=== PATIENT | male | born 1950 | race Caucasian/White ===

== ENCOUNTER 2020-05-16 07:50 | Outpatient (REF) | payer MEDICARE, SELFPAY ==
[2020-05-16 08:28] LABS: MANUAL DIFF FLAG NO
[2020-05-16 08:34] LABS: Basophils Percent Auto 0.6 % (0-2); Eosinophils Absolute Auto 0.3 X10*3/uL (0.0-0.4); Eosinophils Percent Auto 5.2 % (0-4); Hematocrit 45.9 % (42-52); Hemoglobin 14.7 g/dl (14.0-18.0); Imm Gran Abs Auto 0.01 X10*3/uL (0.00-0.03); Imm Gran Pct Auto 0.2 % (0.0-0.4); Lymphocytes Absolute Auto 1.6 X10*3/uL (1.2-4.9); Lymphocytes Percent Auto 29.8 % (20-40); Mean Corpuscular Hemoglobin 27.7 pg (27.0-33.0); Mean Corpuscular Volume 86.6 fL (80-98); Mean Platelet Volume 12.2 fL (9.4-12.4); Monocytes Absolute Auto 0.5 X10*3/uL (0.1-1.2); Monocytes Percent Auto 9.8 % (2-11); Neutrophils Percent Auto 54.4 % (45-73); Platelet Count 150 X10*3/uL (160-400); Red Cell Distribution Width 12.9 % (11.0-16.0); White Blood Count 5.4 X10*3/uL (4.8-10.8)
[2020-05-16 08:50] LABS: Alanine Aminotransferase 27 U/L (0-40); Albumin Level 4.1 g/dL (3.5-5.0); Alkaline Phosphatase 41 U/L (39-117); Anion Gap 12 (12-20); Aspartate Amino Transferase 26 U/L (5-37); Bilirubin Total 0.9 mg/dL (0.0-1.0); Blood Urea Nitrogen 16 mg/dL (9-16); Calcium 8.9 mg/dL (8.4-10.2); Carbon Dioxide 27 mmol/L (22-29); Chloride 105 mmol/L (96-108); Cholesterol 125 mg/dL; Estimated Glomerular Filt Rate > 60; Glucose Fasting 90 mg/dL (60-99); HDL Cholesterol 32 mg/dL; LDL Cholesterol Calculated 62 mg/dl; Potassium 4.2 mmol/l (3.3-5.1); Sodium 140 mmol/L (135-145); Triglycerides 158 mg/dL
[2020-05-16 08:54] LABS: Glucose Urine UA NEG (NEG); Leukocyte Esterase Urine NEG (NEG); Nitrite Urine NEG (NEG); Specific Gravity - Urine 1.025 (1.005-1.025); Urine Blood NEG (NEG); Urine Ketones NEG (NEG); Urine Protein NEG (NEG-TRACE)
[2020-05-16 08:55] LABS: Appearance Urine CLEAR; Color Urine YELLOW
[2020-05-16 09:01] LABS: RBC Urine 0-2 /HPF (0); WBC Urine 0-2 /HPF (0-4)
[2020-05-16 09:12] LABS: TSH reflex Free T4 4.79 mIU/mL (0.32-4.0); Vitamin D 25-OH Total 28.6 ng/mL (>30)
[2020-05-16 09:47] LABS: Free T4 (Free Thyroxine) 0.87 ng/dL (0.71-1.85)
== END 2020-05-16 07:51 | disposition home or self-care (01) ==
LOC: HO.LAB 07:50
PROVIDERS: Visit Provider Internal Medicine
DX: E78.5 Hyperlipidemia, unspecified (principal); I10 Essential (primary) hypertension; L50.9 Urticaria, unspecified; N28.1 Cyst of kidney, acquired; E55.9 Vitamin D deficiency, unspecified; M81.0 Age-related osteoporosis without current pathological fracture; E66.3 Overweight
CPT/HCPCS: 36415; 80053; 80061; 81001; 82306; 84439; 84443; 85025

== ENCOUNTER 2020-08-17 08:06 | Outpatient (REF) | payer MEDICARE, SELFPAY ==
[2020-08-17 08:41] LABS: MANUAL DIFF FLAG NO
[2020-08-17 08:50] LABS: Basophils Absolute Auto 0.1 X10*3/uL (0.0-0.2); Basophils Percent Auto 0.8 % (0-2); Eosinophils Absolute Auto 0.2 X10*3/uL (0.0-0.4); Eosinophils Percent Auto 3.5 % (0-4); Hematocrit 45.9 % (42-52); Hemoglobin 14.9 g/dl (14.0-18.0); Imm Gran Abs Auto 0.01 X10*3/uL (0.00-0.03); Imm Gran Pct Auto 0.2 % (0.0-0.4); Lymphocytes Absolute Auto 1.6 X10*3/uL (1.2-4.9); Lymphocytes Percent Auto 25.7 % (20-40); Mean Corpuscular HGB Conc 32.5 g/dl (31.0-36.0); Mean Corpuscular Hemoglobin 28.1 pg (27.0-33.0); Mean Corpuscular Volume 86.4 fL (80-98); Mean Platelet Volume 11.9 fL (9.4-12.4); Monocytes Absolute Auto 0.6 X10*3/uL (0.1-1.2); Monocytes Percent Auto 9.1 % (2-11); Neutrophils Absolute Auto 3.8 X10*3/uL (2.0-8.3); Neutrophils Percent Auto 60.7 % (45-73); Platelet Count 152 X10*3/uL (160-400); Red Blood Count 5.31 X10*6/uL (4.60-5.80); Red Cell Distribution Width 13.1 % (11.0-16.0); White Blood Count 6.2 X10*3/uL (4.8-10.8)
[2020-08-17 08:56] LABS: Glucose Urine UA NEG (NEG); Leukocyte Esterase Urine TRACE (NEG); Nitrite Urine NEG (NEG); PH 5.5 (5.0-8.0); Specific Gravity - Urine >= 1.030 (1.005-1.025); UACC Culture Trigger YES; Urine Blood TRACE (NEG); Urine Ketones NEG (NEG); Urine Protein NEG (NEG-TRACE)
[2020-08-17 09:06] LABS: Appearance Urine CLEAR; Color Urine YELLOW
[2020-08-17 09:07] LABS: RBC Urine 0-2 /HPF (0)
[2020-08-17 09:08] LABS: Mucus Urine 1+ /LPF; Squamous Epithelial Cell Urine TRACE /LPF
[2020-08-17 09:23] LABS: Alanine Aminotransferase 26 U/L (0-40); Albumin Level 4.2 g/dL (3.5-5.0); Alkaline Phosphatase 44 U/L (39-117); Anion Gap 12 (12-20); Aspartate Amino Transferase 23 U/L (5-37); Bilirubin Total 0.7 mg/dL (0.0-1.0); Blood Urea Nitrogen 20 mg/dL (9-16); Calcium 9.1 mg/dL (8.4-10.2); Carbon Dioxide 25 mmol/L (22-29); Chloride 108 mmol/L (96-108); Cholesterol 133 mg/dL; Estimated Glomerular Filt Rate > 60; Glucose Fasting 90 mg/dL (60-99); HDL Cholesterol 37 mg/dL; LDL Cholesterol Calculated 68 mg/dl; Potassium 4.4 mmol/L (3.3-5.1); Sodium 141 mmol/L (135-145); Total Protein 7.1 g/dL (6.5-8.0); Triglycerides 143 mg/dL
[2020-08-17 09:36] LABS: TSH reflex Free T4 4.84 uIU/mL (0.32-4.0)
[2020-08-17 10:27] LABS: Free T4 (Free Thyroxine) 0.92 ng/dL (0.71-1.85)
== END 2020-08-17 08:07 | disposition home or self-care (01) ==
LOC: HO.LAB 08:06
PROVIDERS: PCP Internal Medicine; Visit Provider Internal Medicine
DX: I10 Essential (primary) hypertension (principal); E78.00 Pure hypercholesterolemia, unspecified; E66.3 Overweight; E55.9 Vitamin D deficiency, unspecified
CPT/HCPCS: 36415; 80053; 80061; 81001; 81003; 82306; 84439; 84443; 85025; 87086

== ENCOUNTER 2020-11-21 06:19 | Outpatient (REF) | payer MEDICARE, SELFPAY ==
[2020-11-21 06:52] LABS: MANUAL DIFF FLAG NO
[2020-11-21 07:10] LABS: Basophils Percent Auto 0.8 % (0-2); Eosinophils Absolute Auto 0.2 X10*3/uL (0.0-0.4); Eosinophils Percent Auto 3.5 % (0-4); Hemoglobin 14.9 g/dl (14.0-18.0); Imm Gran Abs Auto 0.01 X10*3/uL (0.00-0.03); Imm Gran Pct Auto 0.2 % (0.0-0.4); Lymphocytes Absolute Auto 1.6 X10*3/uL (1.2-4.9); Lymphocytes Percent Auto 31.5 % (20-40); Mean Corpuscular HGB Conc 32.4 g/dl (31.0-36.0); Mean Corpuscular Hemoglobin 28.1 pg (27.0-33.0); Mean Corpuscular Volume 86.8 fL (80-98); Monocytes Absolute Auto 0.5 X10*3/uL (0.1-1.2); Monocytes Percent Auto 9.4 % (2-11); Neutrophils Absolute Auto 2.9 X10*3/uL (2.0-8.3); Neutrophils Percent Auto 54.6 % (45-73); Platelet Count 160 X10*3/uL (160-400); Red Cell Distribution Width 12.8 % (11.0-16.0); White Blood Count 5.2 X10*3/uL (4.8-10.8)
[2020-11-21 07:11] LABS: Glucose Urine UA NEG (NEG); Leukocyte Esterase Urine NEG (NEG); Nitrite Urine NEG (NEG); Urine Blood NEG (NEG); Urine Ketones NEG (NEG); Urine Protein NEG (NEG-TRACE)
[2020-11-21 07:14] LABS: Appearance Urine CLEAR; Color Urine YELLOW
[2020-11-21 07:43] LABS: Prostate Specific Antigen 1.86 ng/mL (<0.05-4.0); TSH reflex Free T4 4.82 uIU/mL (0.32-4.0); Vitamin D 25-OH Total 31.8 ng/mL (>30)
[2020-11-21 07:48] LABS: Alanine Aminotransferase 31 U/L (0-40); Albumin Level 4.2 g/dL (3.5-5.0); Alkaline Phosphatase 44 U/L (39-117); Anion Gap 11 (12-20); Aspartate Amino Transferase 30 U/L (5-37); Bilirubin Total 0.7 mg/dL (0.0-1.0); Blood Urea Nitrogen 16 mg/dL (9-16); Calcium 9.5 mg/dL (8.4-10.2); Carbon Dioxide 28 mmol/L (22-29); Chloride 105 mmol/L (96-108); Cholesterol 124 mg/dL; Estimated Glomerular Filt Rate > 60; Glucose Fasting 89 mg/dL (60-99); HDL Cholesterol 38 mg/dL; LDL Cholesterol Calculated 65 mg/dl; Potassium 4.7 mmol/L (3.3-5.1); Sodium 139 mmol/L (135-145); Total Protein 7.2 g/dL (6.5-8.0); Triglycerides 107 mg/dL
[2020-11-21 08:40] LABS: Free T4 (Free Thyroxine) 0.88 ng/dL (0.71-1.85)
== END 2020-11-21 06:20 | disposition home or self-care (01) ==
LOC: HO.LAB 06:19
PROVIDERS: PCP Internal Medicine; Visit Provider Internal Medicine
DX: Z12.5 Encounter for screening for malignant neoplasm of prostate (principal); E78.00 Pure hypercholesterolemia, unspecified; I10 Essential (primary) hypertension; N28.1 Cyst of kidney, acquired; E66.3 Overweight; R31.29 Other microscopic hematuria; E55.9 Vitamin D deficiency, unspecified; M81.0 Age-related osteoporosis without current pathological fracture
CPT/HCPCS: 36415; 80053; 80061; 81003; 82306; 84153; 84439; 84443; 85025

== ENCOUNTER 2021-01-03 12:10 | Outpatient (REF) | payer MEDICARE, SELFPAY ==
--- NOTE | ~2021-01-03 | MM_ITS ---
EXAMINATION: BONE DENSITOMETRY CLINICAL INDICATION: Age-related osteoporosis without current pathological fracture. COMPARISON: Previous BD dated 11/05/2018 and baseline BD dated 03/26/2012. TECHNIQUE: Using a [employer] DXA System (software version: 13.1) manufactured by [employer], dual-energy x-ray absorptiometry was performed of the lumbar spine and left hip. The images are of good technical quality. Summary results are attached. FINDINGS: AP SPINE L1-L2 (excluding L3 and L4): The data of L1-L4 has been changed to exclude the L3 and L4 vertebral bodies, because degenerative changes at these levels may cause overestimation of lumbar spine density. Current: BMD 1.305 g/cm2, Z-score 0.6, T-score 0.9, normal, 3.7% increase from previous, 3.2% increase from baseline (<5% change is not significant). Prior: BMD 1.258 g/cm2. Baseline: BMD 1.264 g/cm2. LEFT FEMUR, NECK: Current: BMD 0.779 g/cm2, Z-score -1.6, T-score -2.2, osteopenia. Prior: BMD 0.790 g/cm2. Baseline: BMD 0.733 g/cm2. LEFT FEMUR, TOTAL: Current: BMD 0.820 g/cm2, Z-score -1.7, T-score -2.0, osteopenia, 2.0% decrease from previous, 1.9% increase from baseline (<5% change is not significant). Prior: BMD 0.837 g/cm2. Baseline: BMD 0.805 g/cm2. IDENTIFIED RISK FACTORS: History of fracture (adult). HISTORY OF FRACTURE: Femur/hip, age 39. MEDICATIONS: Calcium supplements or multivitamin, vitamin D. MM/XR DEXA axial skeleton IMPRESSION: 1. DIAGNOSIS: Osteopenia based on the lowest T-score value of -2.2 in the femoral neck applying World Health Organization criteria. 2. 10-YEAR FRACTURE RISK PREDICTION, FRAX: Major osteoporotic fracture (clinical spine, forearm, hip or shoulder) 13.1%. Hip fracture 3.3%. 3. Treatment Recommendations: NOF guidelines recommend consideration for treatment in postmenopausal women and men age 50 and older presenting with the following: -A hip or vertebral (clinical or morphometric) fracture. -T-score less than or equal to -2.5 at the femoral neck or spine after appropriate evaluation to exclude secondary causes. -Low bone mass at the hip or spine and a 10-year fracture probability by FRAX of greater than or equal to 3% for hip fracture or greater than or equal to 20% for major osteoporotic fracture based on the [place] adapted WHO algorithm. 4. Other Recommendations: All treatment decisions require clinical judgment and consideration of individual patient factors, including patient preferences, comorbidities, previous drug use, risk factors not captured in the FRAX model (e.g. frailty, falls, vitamin D deficiency, increased bone turnover, interval significant decline in bone density) and possible under or overestimation of fracture risk by FRAX. Additional medical evaluation for secondary cause of low bone mineral density may be appropriate. FUTURE SCAN RECOMMENDATION: People with diagnosed cases of osteoporosis or at high risk for fracture should have regular bone mineral density tests. For patients eligible for Medicare, routine testing is allowed once every 2 years. The testing frequency can be increased to one year for patients who have rapidly progressing disease, those who are receiving or discontinuing medical therapy to restore bone mass, or have additional risk factors.
== END 2021-01-03 12:11 | disposition home or self-care (01) ==
LOC: HO.MAMMO 12:10
PROVIDERS: Visit Provider Internal Medicine
DX: Z13.820 Encounter for screening for osteoporosis (principal); M81.0 Age-related osteoporosis without current pathological fracture; Z87.81 Personal history of (healed) traumatic fracture; Z79.899 Other long term (current) drug therapy
CPT/HCPCS: 77080

== ENCOUNTER 2021-03-01 06:06 | Outpatient (REF) | payer MEDICARE, SELFPAY ==
[2021-03-01 06:53] LABS: MANUAL DIFF FLAG NO
[2021-03-01 06:56] LABS: Basophils Percent Auto 0.6 % (0-2); Eosinophils Absolute Auto 0.3 X10*3/uL (0.0-0.4); Hematocrit 44.1 % (42-52); Hemoglobin 14.4 g/dl (14.0-18.0); Imm Gran Abs Auto 0.02 X10*3/uL (0.00-0.03); Imm Gran Pct Auto 0.3 % (0.0-0.4); Lymphocytes Absolute Auto 2.1 X10*3/uL (1.2-4.9); Lymphocytes Percent Auto 32.3 % (20-40); Mean Corpuscular HGB Conc 32.7 g/dl (31.0-36.0); Mean Corpuscular Volume 85.8 fL (80-98); Mean Platelet Volume 12.3 fL (9.4-12.4); Monocytes Absolute Auto 0.7 X10*3/uL (0.1-1.2); Monocytes Percent Auto 10.5 % (2-11); Neutrophils Absolute Auto 3.4 X10*3/uL (2.0-8.3); Neutrophils Percent Auto 51.3 % (45-73); Platelet Count 155 X10*3/uL (160-400); Red Blood Count 5.14 X10*6/uL (4.60-5.80); Red Cell Distribution Width 13.2 % (11.0-16.0); White Blood Count 6.6 X10*3/uL (4.8-10.8)
[2021-03-01 07:15] LABS: Alanine Aminotransferase 28 U/L (0-40); Albumin Level 4.2 g/dL (3.5-5.0); Alkaline Phosphatase 40 U/L (39-117); Anion Gap 11 (12-20); Aspartate Amino Transferase 32 U/L (5-37); Bilirubin Total 0.9 mg/dL (0.0-1.0); Blood Urea Nitrogen 19 mg/dL (9-16); Calcium 9.3 mg/dL (8.4-10.2); Carbon Dioxide 26 mmol/L (22-29); Chloride 108 mmol/L (96-108); Cholesterol 123 mg/dL; Estimated Glomerular Filt Rate > 60; Glucose Fasting 89 mg/dL (60-99); HDL Cholesterol 38 mg/dL; LDL Cholesterol Calculated 65 mg/dl; Potassium 4.5 mmol/L (3.3-5.1); Sodium 140 mmol/L (135-145); Total Protein 6.9 g/dL (6.5-8.0); Triglycerides 101 mg/dL
[2021-03-01 07:37] LABS: Free T4 (Free Thyroxine) 0.83 ng/dL (0.71-1.85); Thyroid Stimulating Hormone 4.37 uIU/mL (0.32-4.0); Vitamin D 25-OH Total 30.8 ng/mL (>30)
[2021-03-01 08:17] LABS: Appearance Urine CLEAR; Color Urine YELLOW; Glucose Urine UA NEG (NEG); Leukocyte Esterase Urine NEG (NEG); Nitrite Urine NEG (NEG); PH 6.5 (5.0-8.0); Urine Blood NEG (NEG); Urine Ketones NEG (NEG); Urine Protein NEG (NEG-TRACE)
== END 2021-03-01 06:07 | disposition home or self-care (01) ==
LOC: HO.LAB 06:06
PROVIDERS: PCP Internal Medicine; Visit Provider Internal Medicine
DX: E55.9 Vitamin D deficiency, unspecified (principal); I10 Essential (primary) hypertension; E03.9 Hypothyroidism, unspecified; E78.00 Pure hypercholesterolemia, unspecified
CPT/HCPCS: 36415; 80053; 80061; 81003; 82306; 84439; 84443; 85025

== ENCOUNTER 2021-05-30 06:01 | Outpatient (REF) | payer MEDICARE, SELFPAY ==
[2021-05-30 06:28] LABS: MANUAL DIFF FLAG NO
[2021-05-30 07:16] LABS: Appearance Urine CLEAR; Color Urine YELLOW; Glucose Urine UA NEG (NEG); Leukocyte Esterase Urine NEG (NEG); Nitrite Urine NEG (NEG); Specific Gravity - Urine 1.025 (1.005-1.025); Urine Blood NEG (NEG); Urine Ketones NEG (NEG); Urine Protein NEG (NEG-TRACE)
[2021-05-30 07:17] LABS: Basophils Percent Auto 0.6 % (0-2); Eosinophils Absolute Auto 0.2 X10*3/uL (0.0-0.4); Eosinophils Percent Auto 3.6 % (0-4); Hematocrit 44.7 % (42.0-52.0); Hemoglobin 14.3 g/dl (14.0-18.0); Imm Gran Abs Auto 0.01 X10*3/uL (0.00-0.03); Imm Gran Pct Auto 0.2 % (0.0-0.4); Lymphocytes Absolute Auto 1.6 X10*3/uL (1.2-4.9); Lymphocytes Percent Auto 30.5 % (20-40); Mean Corpuscular Hemoglobin 27.9 pg (27.0-33.0); Mean Corpuscular Volume 87.3 fL (80.0-98.0); Monocytes Absolute Auto 0.5 X10*3/uL (0.1-1.2); Monocytes Percent Auto 8.5 % (2-11); Neutrophils Percent Auto 56.6 % (45-73); Platelet Count 163 X10*3/uL (160-400); Red Blood Count 5.12 X10*6/uL (4.60-5.80); Red Cell Distribution Width 13.1 % (11.0-16.0); White Blood Count 5.3 X10*3/uL (4.8-10.8)
[2021-05-30 07:48] LABS: Alanine Aminotransferase 38 U/L (0-40); Albumin Level 4.2 g/dL (3.5-5.0); Alkaline Phosphatase 39 U/L (39-117); Anion Gap 12 (12-20); Aspartate Amino Transferase 37 U/L (5-37); Bilirubin Total 1.3 mg/dL (0.0-1.0); Blood Urea Nitrogen 17 mg/dL (9-16); Calcium 9.5 mg/dL (8.4-10.2); Carbon Dioxide 28 mmol/L (22-29); Chloride 105 mmol/L (96-108); Cholesterol 122 mg/dL; Estimated Glomerular Filt Rate > 60; Glucose Fasting 88 mg/dL (60-99); HDL Cholesterol 38 mg/dL; LDL Cholesterol Calculated 56 mg/dl; Potassium 4.5 mmol/L (3.3-5.1); Sodium 140 mmol/L (135-145); Triglycerides 140 mg/dL
[2021-05-30 08:12] LABS: Thyroid Stimulating Hormone 4.31 uIU/mL (0.32-4.0)
== END 2021-05-30 06:02 | disposition home or self-care (01) ==
LOC: HO.LAB 06:01
PROVIDERS: PCP Internal Medicine; Visit Provider Internal Medicine
DX: E78.00 Pure hypercholesterolemia, unspecified (principal); I10 Essential (primary) hypertension; R79.89 Other specified abnormal findings of blood chemistry
CPT/HCPCS: 36415; 80053; 80061; 81003; 84439; 84443; 85025

== ENCOUNTER 2021-08-31 06:43 | Outpatient (REF) | payer MEDICARE, SELFPAY ==
[2021-08-31 07:09] LABS: MANUAL DIFF FLAG NO
[2021-08-31 07:33] LABS: Appearance Urine CLEAR; Color Urine YELLOW; Glucose Urine UA NEG (NEG); Leukocyte Esterase Urine NEG (NEG); Nitrite Urine NEG (NEG); Specific Gravity - Urine 1.025 (1.005-1.025); Urine Blood NEG (NEG); Urine Ketones NEG (NEG); Urine Protein NEG (NEG-TRACE)
[2021-08-31 07:38] LABS: Basophils Percent Auto 0.6 % (0-2); Eosinophils Absolute Auto 0.1 X10*3/uL (0.0-0.4); Eosinophils Percent Auto 2.4 % (0-4); Hematocrit 46.6 % (42.0-52.0); Hemoglobin 14.7 g/dl (14.0-18.0); Imm Gran Abs Auto 0.01 X10*3/uL (0.00-0.03); Imm Gran Pct Auto 0.2 % (0.0-0.4); Lymphocytes Absolute Auto 1.5 X10*3/uL (1.2-4.9); Lymphocytes Percent Auto 28.8 % (20-40); Mean Corpuscular HGB Conc 31.5 g/dl (31.0-36.0); Mean Corpuscular Hemoglobin 27.4 pg (27.0-33.0); Mean Corpuscular Volume 86.9 fL (80.0-98.0); Monocytes Absolute Auto 0.5 X10*3/uL (0.1-1.2); Monocytes Percent Auto 9.7 % (2-11); Neutrophils Absolute Auto 3.1 x10*3/uL (2.0-8.3); Neutrophils Percent Auto 58.3 % (45-73); Platelet Count 156 X10*3/uL (160-400); Red Blood Count 5.36 X10*6/uL (4.60-5.80); Red Cell Distribution Width 13.2 % (11.0-16.0); White Blood Count 5.3 X10*3/uL (4.8-10.8)
[2021-08-31 07:57] LABS: Alanine Aminotransferase 29 U/L (0-40); Albumin Level 4.1 g/dL (3.5-5.0); Alkaline Phosphatase 42 U/L (39-117); Anion Gap 10 (12-20); Aspartate Amino Transferase 28 U/L (5-37); Bilirubin Total 1.2 mg/dL (0.0-1.0); Blood Urea Nitrogen 18 mg/dL (9-16); Calcium 9.6 mg/dL (8.4-10.2); Carbon Dioxide 29 mmol/L (22-29); Chloride 105 mmol/L (96-108); Cholesterol 133 mg/dL; Estimated Glomerular Filt Rate > 60; Glucose Fasting 86 mg/dL (60-99); HDL Cholesterol 39 mg/dL; LDL Cholesterol Calculated 68 mg/dl; Potassium 4.5 mmol/L (3.3-5.1); Sodium 139 mmol/L (135-145); Triglycerides 134 mg/dL
[2021-08-31 08:29] LABS: Vitamin D 25-OH Total 33.2 ng/mL (>30)
== END 2021-08-31 06:44 | disposition home or self-care (01) ==
LOC: HO.LAB 06:43
PROVIDERS: PCP Internal Medicine; Visit Provider Internal Medicine
DX: E78.00 Pure hypercholesterolemia, unspecified (principal); I10 Essential (primary) hypertension; E03.9 Hypothyroidism, unspecified; E55.9 Vitamin D deficiency, unspecified
CPT/HCPCS: 36415; 80053; 80061; 81003; 82306; 84439; 84443; 85025

== ENCOUNTER 2021-10-01 10:11 | Outpatient (REF) | payer MEDICARE, SELFPAY ==
--- NOTE | ~2021-10-01 | US_ITS ---
EXAMINATION: US RETROPERITONEAL LIMITED (RENAL ONLY) CLINICAL INFORMATION: Cyst of kidney, acquired. COMPARISON: US retroperitoneal limited (renal only) 08/04/2019. CT abdomen and pelvis without and with contrast 12/09/2014. TECHNIQUE: Real-time imaging of the kidneys. FINDINGS: RIGHT KIDNEY: 12.6 x 6.5 x 5.8 cm (SAG x AP x TRV). The kidney is normal in size, contour, and echogenicity. Renal cortical thickness is normal. No renal calculi or hydronephrosis. Benign-appearing peripelvic and renal cysts measuring up to 1.5 cm no routine follow up recommended. LEFT KIDNEY: 11.3 x 6.0 x 4.7 cm (SAG x AP x TRV). The kidney is normal in size, contour, and echogenicity. Renal cortical thickness is normal. No renal calculi. Left renal pelviectasis without radha hydronephrosis. Benign appearing peripelvic and renal cysts measuring up to 2.2 cm, no routine follow up imaging recommended. US/US renal BI IMPRESSION: Left renal pelviectasis without radha hydronephrosis. Benign-appearing bilateral renal and peripelvic renal cysts, no imaging follow-up recommended.
== END 2021-10-01 10:12 | disposition home or self-care (01) ==
LOC: HO.US 10:11
PROVIDERS: PCP Internal Medicine; Visit Provider Internal Medicine
DX: N28.1 Cyst of kidney, acquired (principal)
CPT/HCPCS: 76775

== ENCOUNTER 2021-10-08 11:53 | Outpatient (REF) | payer MEDICARE, SELFPAY ==
--- NOTE | ~2021-10-08 | XR_ITS ---
EXAMINATION: XR RIBS, RIGHT CLINICAL INFORMATION: Pleurodynia COMPARISON: Chest x-ray 01/14/2007 TECHNIQUE: 3 views of the right ribs were obtained. FINDINGS: Cardiac silhouette is normal in size. The lungs are well aerated. Minimal linear opacities of the right lung base are most suggestive of atelectasis. There is no lobar consolidation. No pleural effusion or pneumothorax. No right-sided rib fracture. XR/XR ribs RT min 3V w CXR1V IMPRESSION: No right-sided rib fracture.
== END 2021-10-08 11:54 | disposition home or self-care (01) ==
LOC: HO.XRAY 11:53
PROVIDERS: PCP Internal Medicine; Visit Provider Hospitalist
DX: R07.81 Pleurodynia (principal)
CPT/HCPCS: 71101

== ENCOUNTER 2021-12-04 07:21 | Outpatient (REF) | payer MEDICARE, SELFPAY ==
[2021-12-04 07:37] LABS: MANUAL DIFF FLAG NO
[2021-12-04 08:11] LABS: Basophils Percent Auto 0.6 % (0-2); Eosinophils Absolute Auto 0.2 X10*3/uL (0.0-0.4); Eosinophils Percent Auto 2.9 % (0-4); Hematocrit 48.3 % (42.0-52.0); Hemoglobin 15.1 g/dl (14.0-18.0); Imm Gran Abs Auto 0.01 X10*3/uL (0.00-0.03); Imm Gran Pct Auto 0.2 % (0.0-0.4); Lymphocytes Absolute Auto 1.9 X10*3/uL (1.2-4.9); Lymphocytes Percent Auto 36.5 % (20-40); Mean Corpuscular HGB Conc 31.3 g/dl (31.0-36.0); Mean Corpuscular Hemoglobin 27.2 pg (27.0-33.0); Mean Corpuscular Volume 86.9 fL (80.0-98.0); Mean Platelet Volume 11.5 fL (9.4-12.4); Monocytes Absolute Auto 0.6 X10*3/uL (0.1-1.2); Monocytes Percent Auto 10.8 % (2-11); Neutrophils Absolute Auto 2.5 x10*3/uL (2.0-8.3); Platelet Count 159 X10*3/uL (160-400); Red Blood Count 5.56 X10*6/uL (4.60-5.80); Red Cell Distribution Width 13.1 % (11.0-16.0); White Blood Count 5.1 X10*3/uL (4.8-10.8)
[2021-12-04 08:37] LABS: Alanine Aminotransferase 34 U/L (0-40); Albumin Level 4.4 g/dL (3.5-5.0); Alkaline Phosphatase 51 U/L (39-117); Anion Gap 12 (12-20); Aspartate Amino Transferase 33 U/L (5-37); Bilirubin Total 0.8 mg/dL (0.0-1.0); Blood Urea Nitrogen 22 mg/dL (9-16); Calcium 9.4 mg/dL (8.4-10.2); Carbon Dioxide 26 mmol/L (22-29); Chloride 108 mmol/L (96-108); Cholesterol 125 mg/dL; Estimated Glomerular Filt Rate > 60; Glucose Fasting 92 mg/dL (60-99); HDL Cholesterol 38 mg/dL; LDL Cholesterol Calculated 72 mg/dl; Potassium 4.5 mmol/L (3.3-5.1); Sodium 141 mmol/L (135-145); Total Protein 7.3 g/dL (6.5-8.0); Triglycerides 77 mg/dL
[2021-12-04 09:01] LABS: Free T4 (Free Thyroxine) 0.91 ng/dL (0.71-1.85); Prostate Specific Antigen 2.74 ng/mL (<0.05-4.0); Thyroid Stimulating Hormone 3.62 uIU/mL (0.32-4.0); Vitamin D 25-OH Total 33.6 ng/mL (>30)
[2021-12-04 09:13] LABS: Appearance Urine CLEAR; Color Urine YELLOW; Glucose Urine UA NEG (NEG); Leukocyte Esterase Urine NEG (NEG); Nitrite Urine NEG (NEG); Specific Gravity - Urine >= 1.030 (1.005-1.025); Urine Blood NEG (NEG); Urine Ketones NEG (NEG); Urine Protein NEG (NEG-TRACE)
== END 2021-12-04 07:22 | disposition home or self-care (01) ==
LOC: HO.LAB 07:21
PROVIDERS: PCP Internal Medicine; Visit Provider Internal Medicine
DX: N40.0 Benign prostatic hyperplasia without lower urinary tract symptoms (principal); E55.9 Vitamin D deficiency, unspecified; I10 Essential (primary) hypertension; R79.89 Other specified abnormal findings of blood chemistry; E78.00 Pure hypercholesterolemia, unspecified; Z12.5 Encounter for screening for malignant neoplasm of prostate
CPT/HCPCS: 36415; 80053; 80061; 81003; 82306; 84153; 84439; 84443; 85025

== ENCOUNTER 2022-03-28 13:45 | Inpatient (IN) | payer MEDICARE, SELFPAY ==
--- NOTE | ~2022-03-28 | CT_ITS ---
EXAMINATION: CT ANGIOGRAM OF THE CHEST WITH AND WITHOUT CONTRAST (CT PULMONARY ANGIOGRAM FOR PE) CLINICAL INFORMATION: Reason for Exam sob with covid COMPARISON: Chest x-ray 03/28/2022 TECHNIQUE: Prior to contrast administration, noncontrast localization images were obtained. Subsequently, multidetector volumetric imaging was performed from the thoracic inlet to below the diaphragms following the administration of 65 mL Omnipaque 350 intravenous contrast. No contrast reaction reported Sagittal, coronal, and MIP oblique sagittal reformatted images were obtained on the CT workstation, uploaded to PACS, and reviewed. This CT examination was performed using dose optimization techniques as appropriate, variously including the following: *Automated exposure control *Adjustment of mA and/or kV according to patient size (this includes techniques or standardized protocols for targeted exams where dose is matched to indication/reason for exam; i.e. extremities or head) *Use of iterative reconstruction technique Total exam dose-length product 387 mGy-cm FINDINGS: QUALITY OF STUDY/CONTRAST BOLUS: Satisfactory. PULMONARY ARTERIES: No central or segmental pulmonary emboli. THORACIC AORTA: No aneurysm or dissection. Mild scattered calcification. LUNG: There are relatively curvilinear regions of groundglass opacity in the inferior lingula and left lower lobe, suggesting atelectasis. Mild dependent atelectasis bilaterally. No additional dense consolidation bilaterally. PLEURA: No pleural effusion or pneumothorax. MEDIASTINUM: The visualized thyroid gland is unremarkable. There are subcentimeter mediastinal lymph nodes within the range of normal variation. Cardiac size is within normal limits; no pericardial effusion. CHEST WALL/AXILLA: No axillary or internal mammary lymphadenopathy. OSSEOUS STRUCTURES: Degenerative changes are noted in the spine. UPPER ABDOMEN: Unremarkable. No reflux of contrast into the hepatic veins to suggest elevated right heart pressures. CT/CT angio chest PE protocol IMPRESSION: 1. No pulmonary embolus identified. 2. Bibasilar ground glass opacities favored to at least partially be due to atelectasis, though an infectious component may be present at the left base given the history of Covid pneumonia. VTE: negative
--- NOTE | ~2022-03-28 | XR_ITS ---
EXAMINATION: XR CHEST CLINICAL INFORMATION: Chest pain COMPARISON: 10/08/2021 TECHNIQUE: 2 views of the chest were obtained. FINDINGS: The lungs are well expanded. There is no focal consolidation, edema, or effusion. No pneumothorax. The cardiomediastinal silhouette is within normal limits. No acute osseous abnormality. XR/XR chest 2V IMPRESSION: No acute pulmonary finding.
[2022-03-28 13:47] VITALS: BP 127/81; PULSE 70; RESP 22; TEMP 36.4; O2SAT 97; BMI 31.4
--- NOTE | 2022-03-28 13:51 | ECG_ITS ---
Test Reason : chest pain Blood Pressure : / mmHG Vent. Rate : 067 BPM Atrial Rate : 067 BPM P-R Int : 220 ms QRS Dur : 080 ms QT Int : 378 ms P-R-T Axes : 062 -31 042 degrees QTc Int : 399 ms Sinus rhythm with 1st degree A-V block Left axis deviation Abnormal ECG When compared with ECG of 14-JAN-2007 16:15, ST no longer elevated in Inferolateral leads ME interval has increased Referred By: Generic ED Physician Electronically Signed By:RAY ADAMES
[2022-03-28 14:09] LABS: MANUAL DIFF FLAG NO
[2022-03-28 14:13] LABS: Basophils Percent Auto 0.5 % (0-2); Eosinophils Percent Auto 0.7 % (0-4); Hematocrit 45.2 % (42.0-52.0); Hemoglobin 14.6 g/dl (14.0-18.0); Imm Gran Abs Auto 0.02 X10*3/uL (0.00-0.03); Imm Gran Pct Auto 0.4 % (0.0-0.4); Lymphocytes Absolute Auto 0.5 X10*3/uL (1.2-4.9); Lymphocytes Percent Auto 9.6 % (20-40); Mean Corpuscular HGB Conc 32.3 g/dl (31.0-36.0); Mean Corpuscular Hemoglobin 27.4 pg (27.0-33.0); Mean Platelet Volume 11.1 fL (9.4-12.4); Monocytes Absolute Auto 0.9 X10*3/uL (0.1-1.2); Monocytes Percent Auto 15.6 % (2-11); Neutrophils Absolute Auto 4.1 x10*3/uL (2.0-8.3); Neutrophils Percent Auto 73.2 % (45-73); Platelet Count 133 X10*3/uL (160-400); Red Blood Count 5.32 X10*6/uL (4.60-5.80); Red Cell Distribution Width 13.4 % (11.0-16.0); White Blood Count 5.7 X10*3/uL (4.8-10.8)
[2022-03-28 14:17] LABS: COVID-19 Test Positive (Negative)
[2022-03-28 14:34] LABS: Alanine Aminotransferase 26 U/L (0-40); Albumin Level 4.3 g/dL (3.5-5.0); Alkaline Phosphatase 41 U/L (39-117); Anion Gap 15 (12-20); Aspartate Amino Transferase 33 U/L (5-37); Bilirubin Direct 0.2 mg/dL (0.0-0.5); Bilirubin Total 0.6 mg/dL (0.0-1.0); Blood Urea Nitrogen 13 mg/dL (9-16); Calcium 9.2 mg/dL (8.4-10.2); Carbon Dioxide 18 mmol/L (22-29); Chloride 107 mmol/L (96-108); Creatinine Clr Calc Pharmacy 93.1; Estimated Glomerular Filt Rate > 60; Glucose Random 80 mg/dL (60-115); Lipase 46 U/L (8-78); Potassium 4.2 mmol/L (3.3-5.1); Sodium 136 mmol/L (135-145); Total Protein 7.3 g/dL (6.5-8.0); Troponin-I High Sensitivity < 3.5 ng/L (<3.5-35.0)
[2022-03-29] VITALS (10 sets, daily range): BP systolic 107–136; BP diastolic 70–85; PULSE 71–101; RESP 12–20; TEMP 36.6–37.2; O2SAT 88–96
--- NOTE | 2022-03-29 00:16 | PC.NURSE ---
pt was not in the waiting room and now has returned.
--- NOTE | 2022-03-29 00:36 | ED.CHESTPAIN ---
HPI - Chest Pain General Chief Complaint: Chest Pain Stated Complaint: CP SoB Time Seen by Provider: 03/29/22 00:36 Source: patient Mode of arrival: ambulatory Limitations: no limitations History of Present Illness HPI narrative: Patient is 71 years old with history of hypertension high cholesterol comes for body aches dry hacking cough for last 3 days no fever no chills no nausea no vomiting no diarrhea no other family member sick patient already been vaccinated against COVID Related Data Home Medications Medication Instructions Recorded Confirmed cholecalciferol (vitamin D3) 25 25 mcg PO DAILY 05/25/20 12/10/21 mcg (1,000 unit) capsule multivitamin 1 tab PO DAILY 05/25/20 12/10/21 Previous Rx's Medication Instructions Recorded metoprolol tartrate 25 mg tablet 25 mg PO BID 90 days #180 tabs 12/10/21 simvastatin 40 mg tablet 40 mg PO BEDTIME 90 days #90 tabs 12/10/21 Allergies Allergy/AdvReac Type Severity Reaction Status Date / Time Sulfa (Sulfonamide Allergy Unknown HIVES Verified 12/10/21 09:51 Antibiotics) [SULFA (SULFONAMIDE ANTIBIOTICS)] colonoscopy prep Allergy Unknown Unknown Uncoded 12/10/21 09:51 Silk tape Allergy Unknown rash Uncoded 12/10/21 09:51 Review of Systems Review of Systems: Yes all other systems are reviewed and are negative PMFSH Past Medical History Medical History Benign essential hypertension Hives Microscopic hematuria Osteoporosis Overweight (BMI 25.0-29.9) Pure hypercholesterolemia Renal cyst Stable central retinal vein occlusion of right eye Vitamin D deficiency Surgical History History of colonoscopy History of inguinal hernia repair Family History Family History Father Medical history unknown Mother Hypertension Sister No problems noted. Social History Social History Housing: House Alcohol intake: never Patient Tobacco Use Status: Never used Tobacco e-Cigarette/Vaping Use: Never Used Second Hand Smoke Exposure: No Advance Directives: No Advance Directives Information Provided: No service: No Current occupational status: retired Cognitive needs: No Hearing needs: No Vision needs: Yes Physical Exam Vital Signs: Vital Signs: Last Vital Signs Temp 98.9 F 03/29/22 00:37 Pulse 88 03/29/22 06:24 Resp 17 03/29/22 06:24 BP 113/72 03/29/22 06:24 Pulse Ox 96 03/29/22 06:24 O2 Del Method 03/29/22 06:24 O2 Flow Rate 2 03/29/22 06:24 BMI result Body Mass Index 31.4 Appearance: Alert. Oriented X3. No acute distress. Eyes: PERRLA, No Nystagmus ENT: Pharynx normal. Oral Mucosa moist Neck: Normal inspection. Neck supple. CVS: Normal heart rate and rhythm. Pulses normal. Respiratory: No respiratory distress. Equal air entry bilateral, no wheezing/rales/rhonchi , prolonged expiration Abdomen: Soft and nontender. Bowel sounds are present, no mass palpable, Skin: Skin warm and dry. Normal skin color. Normal skin turgor. Extremities: No lower extremity edema. No calf tenderness Neuro: Oriented X 3. No motor deficit. No sensory deficit.No cerebellar signs , cranial nerves II-XII intact MDM - Chest Pain MDM Narrative Medical decision making narrative: Patient is saturating 90% on room air will get CTA chest rule out PE 05:30 CTA chest negative for PE shows few infiltrate likely from COVID and desaturated to 88% while resting in bed clear will admit patient Lab Data Attestation: I reviewed the patient's lab results. Result diagrams: 03/28/22 14:05 03/28/22 14:05 Labs: Lab Results 03/28/22 03/28/22 03/28/22 Range/Units 14:05 14:05 14:05 WBC 5.7 (4.8-10.8) X10*3/uL RBC 5.32 (4.60-5.80) X10*6/uL Hgb 14.6 (14.0-18.0) g/dl Hct 45.2 (42.0-52.0) % MCV 85.0 (80.0-98.0) fL MCH 27.4 (27.0-33.0) pg MCHC 32.3 (31.0-36.0) g/dl RDW 13.4 (11.0-16.0) % Plt Count 133 L (160-400) X10*3/uL MPV 11.1 (9.4-12.4) fL Immature Gran % (Auto) 0.4 (0.0-0.4) % Neut % (Auto) 73.2 H (45-73) % Lymph % (Auto) 9.6 L (20-40) % [place] % (Auto) 15.6 H (2-11) % Eos % (Auto) 0.7 (0-4) % Baso % (Auto) 0.5 (0-2) % Lymph # (Auto) 0.5 L (1.2-4.9) X10*3/uL [place] # (Auto) 0.9 (0.1-1.2) X10*3/uL Eos # (Auto) 0.0 (0.0-0.4) X10*3/uL Baso # (Auto) 0.0 (0.0-0.2) X10*3/uL Abs Immat Gran (auto) 0.02 (0.00-0.03) X10*3/uL Absolute Neuts (auto) 4.1 (2.0-8.3) x10*3/uL Absolute Nucleated RBC 0.000 (0.0-0.012) X10*3/uL Nucleated RBC % (auto) 0.0 (0.0-0.2) /100WBC D-Dimer High Sensitivty NG/ML Sodium 136 (135-145) mmol/L Potassium 4.2 (3.3-5.1) mmol/L Chloride 107 (96-108) mmol/L Carbon Dioxide 18 L (22-29) mmol/L Anion Gap 15 (12-20) BUN 13 (9-16) mg/dL Creatinine 0.91 (0.5-1.4) mg/dL Estim Creat Clear Calc 93.1 Estimated GFR > 60 Random Glucose 80 (60-115) mg/dL Calcium 9.2 (8.4-10.2) mg/dL Total Bilirubin 0.6 (0.0-1.0) mg/dL Direct Bilirubin 0.2 (0.0-0.5) mg/dL AST 33 (5-37) U/L ALT 26 (0-40) U/L Alkaline Phosphatase 41 (39-117) U/L Troponin I High Sens < 3.5 (<3.5-35.0) ng/L Total Protein 7.3 (6.5-8.0) g/dL Albumin 4.3 (3.5-5.0) g/dL Lipase 46 (8-78) U/L COVID-19 ([facility]) (Negative) COVID-19 Clin Com 03/28/22 03/29/22 Range/Units 14:05 01:42 WBC (4.8-10.8) X10*3/uL RBC (4.60-5.80) X10*6/uL Hgb (14.0-18.0) g/dl Hct (42.0-52.0) % MCV (80.0-98.0) fL MCH (27.0-33.0) pg MCHC (31.0-36.0) g/dl RDW (11.0-16.0) % Plt Count (160-400) X10*3/uL MPV (9.4-12.4) fL Immature Gran % (Auto) (0.0-0.4) % Neut % (Auto) (45-73) % Lymph % (Auto) (20-40) % [place] % (Auto) (2-11) % Eos % (Auto) (0-4) % Baso % (Auto) (0-2) % Lymph # (Auto) (1.2-4.9) X10*3/uL [place] # (Auto) (0.1-1.2) X10*3/uL Eos # (Auto) (0.0-0.4) X10*3/uL Baso # (Auto) (0.0-0.2) X10*3/uL Abs Immat Gran (auto) (0.00-0.03) X10*3/uL Absolute Neuts (auto) (2.0-8.3) x10*3/uL Absolute Nucleated RBC (0.0-0.012) X10*3/uL Nucleated RBC % (auto) (0.0-0.2) /100WBC D-Dimer High Sensitivty 392 NG/ML Sodium (135-145) mmol/L Potassium (3.3-5.1) mmol/L Chloride (96-108) mmol/L Carbon Dioxide (22-29) mmol/L Anion Gap (12-20) BUN (9-16) mg/dL Creatinine (0.5-1.4) mg/dL Estim Creat Clear Calc Estimated GFR Random Glucose (60-115) mg/dL Calcium (8.4-10.2) mg/dL Total Bilirubin (0.0-1.0) mg/dL Direct Bilirubin (0.0-0.5) mg/dL AST (5-37) U/L ALT (0-40) U/L Alkaline Phosphatase (39-117) U/L Troponin I High Sens (<3.5-35.0) ng/L Total Protein (6.5-8.0) g/dL Albumin (3.5-5.0) g/dL Lipase (8-78) U/L COVID-19 ([facility]) Positive A (Negative) COVID-19 Clin Com See Note Discharge Plan Discharge Clinical Impression: Acute hypoxemic respiratory failure due to COVID-19 Patient Disposition: Admitted As Inpatient Interventions: LWBS Worksheet Last Done: 03/28/22 23:32
[2022-03-29] MEDS: Albuterol Sulfate 90 MCG 8 GM INHALER 4 PUFF INHALE (01:23)
[2022-03-29] MEDS: dexAMETHasone 2 MG TABLET 6 MG PO (01:23)
[2022-03-29] MEDS: guaiFEN/Codeine SF 200/20/10ML 10 ML LIQUID PO (01:23)
[2022-03-29 01:55] LABS: D Dimer High Sensitivity 392 NG/ML
[2022-03-29] MEDS: iohexoL 350 MG/ML 100 ML INFUS..BTL 65 ML IV (04:53)
[2022-03-29] MEDS: Albuterol Sulfate 2.5 MG, Albuterol/Iprat 2.5/0.5MG 3 ML 3 ML INHALE (06:07)
--- NOTE | 2022-03-29 06:36 | PM.IMHP ---
History of Present Illness Date of Service: 03/29/22 Chief Complaint: SOB 71-year-old male with past medical history of hypertension, presents to the hospital with complaints of shortness of breath, cough, for the past 3 days. Reports being vaccinated against COVID x3 with a 4th booster as well. Reports no fever or chills, denies having any chest pain, no abdominal pain nausea or vomiting, no diarrhea constipation, no urinary symptoms and no lower extremity edema. Reports of fall in September and sustaining significant contusion to the chest rib making it difficult for him to breathe for several months but reports that that resolved after a while. On arrival to the ED patient noted to be hypoxic at rest satting 88% on room air Labs are significant for WBC count of 5.7, labs otherwise unremarkable, COVID-[address] angiogram was negative for PE, shows bilateral ground-glass opacities partially secondary to atelectasis though infection of component may be present of the left base Review of Systems Review of Systems: Yes all other systems are reviewed and are negative [facility] Medical History Benign essential hypertension Hives Microscopic hematuria Osteoporosis Overweight (BMI 25.0-29.9) Pure hypercholesterolemia Renal cyst Stable central retinal vein occlusion of right eye Vitamin D deficiency Family History Father Medical history unknown Mother Hypertension Sister No problems noted. Surgical History History of colonoscopy History of inguinal hernia repair Social History Housing: House Alcohol intake: never Patient Tobacco Use Status: Never used Tobacco e-Cigarette/Vaping Use: Never Used Second Hand Smoke Exposure: No Advance Directives: No Advance Directives Information Provided: No service: No Current occupational status: retired Cognitive needs: No Hearing needs: No Vision needs: Yes Meds Allergies Allergy/AdvReac Type Severity Reaction Status Date / Time Sulfa (Sulfonamide Allergy Unknown HIVES Verified 12/10/21 09:51 Antibiotics) [SULFA (SULFONAMIDE ANTIBIOTICS)] colonoscopy prep Allergy Unknown Unknown Uncoded 12/10/21 09:51 Silk tape Allergy Unknown rash Uncoded 12/10/21 09:51 Home Medications Medication Instructions Recorded Confirmed Last Taken Type cholecalciferol (vitamin D3) 25 25 mcg PO DAILY 05/25/20 12/10/21 Unknown History mcg (1,000 unit) capsule multivitamin 1 tab PO DAILY 05/25/20 12/10/21 Unknown History Physical Exam Vital Signs and Narrative: Vital Signs: Last Vital Signs Temp 98.9 F 03/29/22 00:37 Pulse 88 03/29/22 06:24 Resp 17 03/29/22 06:24 BP 113/72 03/29/22 06:24 Pulse Ox 96 03/29/22 06:24 O2 Del Method 03/29/22 06:24 O2 Flow Rate 2 03/29/22 06:24 BMI result Body Mass Index 31.4 Const: General: cooperative and no acute distress Orientation/consciousness: patient oriented x3 Eyes: General: appearance normal, both eyes and all related structures Resp: Other: Mild crackles at the bases of lungs bilaterally Effort & Inspection: normal respiratory effort Cardio: Rate: regular rate Rhythm: regular rhythm GI: Palpation (GI): Soft to palpation Auscultation: normal bowel sounds Skin: General skin exam: no rashes or lesions noted Neuro: General: patient oriented x3 Cognition (Neuro): normal cognition Extrem: General: Yes normal to inspection and Yes no pedal edema Results Labs CBC and Chem 7: 03/28/22 14:05 03/28/22 14:05 Labs: Laboratory Results - last 24 hr 03/28/22 03/28/22 03/28/22 14:05 14:05 14:05 MCV 85.0 MCH 27.4 MCHC 32.3 RDW 13.4 Plt Count 133 L MPV 11.1 Immature Gran % (Auto) 0.4 Neut % (Auto) 73.2 H Lymph % (Auto) 9.6 L [place] % (Auto) 15.6 H Eos % (Auto) 0.7 Baso % (Auto) 0.5 Lymph # (Auto) 0.5 L [place] # (Auto) 0.9 Eos # (Auto) 0.0 Baso # (Auto) 0.0 Abs Immat Gran (auto) 0.02 Absolute Neuts (auto) 4.1 Absolute Nucleated RBC 0.000 Nucleated RBC % (auto) 0.0 D-Dimer High Sensitivty Anion Gap 15 Estim Creat Clear Calc 93.1 Estimated GFR > 60 Random Glucose 80 Calcium 9.2 Total Bilirubin 0.6 Direct Bilirubin 0.2 AST 33 ALT 26 Alkaline Phosphatase 41 Troponin I High Sens < 3.5 Total Protein 7.3 Albumin 4.3 Lipase 46 COVID-19 ([facility]) COVID-19 Clin Com 03/28/22 03/29/22 14:05 01:42 MCV MCH MCHC RDW Plt Count MPV Immature Gran % (Auto) Neut % (Auto) Lymph % (Auto) [place] % (Auto) Eos % (Auto) Baso % (Auto) Lymph # (Auto) [place] # (Auto) Eos # (Auto) Baso # (Auto) Abs Immat Gran (auto) Absolute Neuts (auto) Absolute Nucleated RBC Nucleated RBC % (auto) D-Dimer High Sensitivty 392 Anion Gap Estim Creat Clear Calc Estimated GFR Random Glucose Calcium Total Bilirubin Direct Bilirubin AST ALT Alkaline Phosphatase Troponin I High Sens Total Protein Albumin Lipase COVID-19 ([facility]) Positive A COVID-19 Clin Com See Note Imaging Radiologist's Impressions: Impressions Chest X-Ray 03/28/22 14:38 IMPRESSION: No acute pulmonary finding. Chest CTA 03/29/22 04:30 IMPRESSION: 1. No pulmonary embolus identified. 2. Bibasilar ground glass opacities favored to at least partially be due to atelectasis, though an infectious component may be present at the left base given the history of Covid pneumonia. VTE: negative Assessment and Plan (1) Acute respiratory failure with hypoxia: Status: Acute (2) Pneumonia due to COVID-19 virus: Status: Acute Plan This 71-year-old male with past medical history of hypertension presents to the hospital with acute hypoxic respiratory failure secondary to COVID-19 # acute hypoxic respiratory failure - secondary to COVID pneumonia - patient vaccinated against COVID - at this time will treat with O2 supplement - wean oxygen off as tolerated # pneumonia due to COVID-19 virus - has no leukocytosis, afebrile but has hypoxia - will treat with dexamethasone - monitor respiratory status # hypertension - stable - continue home antihypertensives DVT prophylaxis: Lovenox Pt will require a minimum 2 night hospital stay for requiring oxygen, and treatment for COVID Quality Stroke Does the patient have a stroke diagnosis?: No VTE Prior VTE?: No VTE Risk Level:: Medical - moderate - high VTE Device Contraindication: Treatment Not Indicated VTE Drug Contraindication: N/A - Med Ordered
--- NOTE | 2022-03-29 07:57 | PC.NURSE ---
Medications are not verified by pharmacy. Pharmacy notified.
[2022-03-29] MEDS: dexAMETHasone sod phosphate 4 MG/ML VIAL 6 MG IVPUSH (08:08)
[2022-03-29] MEDS: 0.9 % Sodium Chloride Flush 3 ML SYRINGE IVFLUSH (08:08)
[2022-03-29] MEDS: Enoxaparin Sodium 40 MG/0.4 ML SYRINGE SUBCUT (08:09)
[2022-03-29 08:40] LABS: Procalcitonin 0.04 ng/mL
--- NOTE | 2022-03-29 09:31 | PHA.MEDREC ---
Pharmacy Consult ? Medication Reconciliation Pharmacy has completed the medication reconciliation.
--- NOTE | 2022-03-29 11:06 | PM.DS ---
DS: Providers Provider Date of Service: 03/29/22 Date of admission: 03/29/22 06:34 Primary care physician: iMke Powell MD DS: Diagnosis Discharge Diagnosis (1) Acute respiratory failure with hypoxia: Status: Acute (2) Pneumonia due to COVID-19 virus: Status: Acute DS: Summary Hospital Course Hospital Course: history of presenting illness Date of Service: 03/29/22 Chief Complaint: SOB 71-year-old male with past medical history of hypertension, presents to the hospital with complaints of shortness of breath, cough, for the past 3 days.? Reports being vaccinated against COVID x3 with a 4th booster as well.? Reports no fever or chills, denies having any chest pain, no abdominal pain nausea or vomiting, no diarrhea constipation, no urinary symptoms and no lower extremity edema.? Reports of fall in September and sustaining significant contusion to the chest rib making it difficult for him to breathe for several months but reports that that resolved after a while. On arrival to the ED patient noted to be hypoxic at rest satting 88% on room air Labs are significant for WBC count of 5.7, labs otherwise unremarkable, COVID-[address] angiogram was negative for PE, shows bilateral ground-glass opacities partially secondary to atelectasis though infection of component may be present of the left base. hospital course 71-year-old gentleman with past medical history of hypertension admitted to [facility] with a diagnosis of acute hypoxic respiratory failure secondary to COVID-19 infection patient was treated with IV dexamethasone oxygen supplement and cough medication patient responded well to above treatment his oxygenation improved he had a home O2 eval his oxygenation remained 92% at rest and with ambulation therefore he is being discharged home on dexamethasone 6 mg daily to finish a total 10 day course of treatment he is recommended to use cough medication as needed to rest drink plenty of fluids and take vitamin-C, he has been recommended to return to [facility] with worsening shortness of breath fevers lightheadedness dizziness. In regard to hypertension he is recommended to continue home medications. Time Spent with Patient Time attestation: Total time spent providing and/or coordinating discharge services: Discharge coordination time: Greater than 30 minutes Quality: Safe Use of Opioids Does Pt have an Active Cancer Diagnosis on the Problem List?: No Quality: Stroke Does the patient have a stroke diagnosis?: No Physical Exam Vital Signs: Vital Signs: Last Vital Signs Temp 97.9 F 03/29/22 10:19 Pulse 95 03/29/22 10:19 Resp 14 03/29/22 10:19 BP 130/85 03/29/22 10:19 Pulse Ox 93 03/29/22 10:19 O2 Del Method 03/29/22 10:19 O2 Flow Rate 1 03/29/22 10:19 BMI result Body Mass Index 31.4 Const: Other: General Sitting comfortably awake alert in no acute distress. Neck is supple no JVD. CVS regular rate rhythm, Respiratory lungs clear to auscultation, no respiratory distress, no wheeze, no rhonchi. Gastrointestinal abdomen soft, nontender, bowel sounds audible Extremities no edema. Neuro nonfocal patient moving all 4 extremity speech clear. Skin no rash psych appropriate affect DS: Data Data Completed and Pending Labs on day of discharge: Laboratory Results - last 24 hr 03/28/22 03/28/22 03/28/22 14:05 14:05 14:05 WBC 5.7 RBC 5.32 Hgb 14.6 Hct 45.2 MCV 85.0 MCH 27.4 MCHC 32.3 RDW 13.4 Plt Count 133 L MPV 11.1 Immature Gran % (Auto) 0.4 Neut % (Auto) 73.2 H Lymph % (Auto) 9.6 L [place] % (Auto) 15.6 H Eos % (Auto) 0.7 Baso % (Auto) 0.5 Lymph # (Auto) 0.5 L [place] # (Auto) 0.9 Eos # (Auto) 0.0 Baso # (Auto) 0.0 Abs Immat Gran (auto) 0.02 Absolute Neuts (auto) 4.1 Absolute Nucleated RBC 0.000 Nucleated RBC % (auto) 0.0 D-Dimer High Sensitivty Sodium 136 Potassium 4.2 Chloride 107 Carbon Dioxide 18 L Anion Gap 15 BUN 13 Creatinine 0.91 Estim Creat Clear Calc 93.1 Estimated GFR > 60 Random Glucose 80 Calcium 9.2 Total Bilirubin 0.6 Direct Bilirubin 0.2 AST 33 ALT 26 Alkaline Phosphatase 41 Troponin I High Sens < 3.5 Total Protein 7.3 Albumin 4.3 Lipase 46 Procalcitonin COVID-19 ([facility]) COVID-19 Clin Com 03/28/22 03/29/22 03/29/22 14:05 01:42 07:42 WBC RBC Hgb Hct MCV MCH MCHC RDW Plt Count MPV Immature Gran % (Auto) Neut % (Auto) Lymph % (Auto) [place] % (Auto) Eos % (Auto) Baso % (Auto) Lymph # (Auto) [place] # (Auto) Eos # (Auto) Baso # (Auto) Abs Immat Gran (auto) Absolute Neuts (auto) Absolute Nucleated RBC Nucleated RBC % (auto) D-Dimer High Sensitivty 392 Sodium Potassium Chloride Carbon Dioxide Anion Gap BUN Creatinine Estim Creat Clear Calc Estimated GFR Random Glucose Calcium Total Bilirubin Direct Bilirubin AST ALT Alkaline Phosphatase Troponin I High Sens Total Protein Albumin Lipase Procalcitonin 0.04 COVID-19 ([facility]) Positive A COVID-19 Clin Com See Note Discharge Plan Discharge Anticipated Discharge Date/Time: 03/29/22 11:01 Patient Disposition: Home, Self-Care Discharge Diagnosis: acute hypoxic respiratory failure due to COVID-19 infection Referrals: Mike Powell MD [Primary Care Provider] - 1 Week Discharge Medications: New dexamethasone 6 mg tablet 6 mg PO DAILY Qty: 10 0RF Continued diphenhydramine HCl [Benadryl] 25 mg Capsule 25 mg PO TID PRN (Reason: itching) cholecalciferol (vitamin D3) 25 mcg (1,000 unit) capsule 25 mcg PO DAILY multivitamin Tablet 1 tab PO DAILY metoprolol tartrate 25 mg tablet 25 mg PO BID 90 Days Qty: 180 3RF simvastatin 40 mg tablet 40 mg PO BEDTIME 90 Days Qty: 90 3RF Discharge Orders: Discharge Order (Routine); Ordered 03/29/22 Ordered By: Maria R Hernández Diet: Low fat, low cholesterol Activity on Discharge: As tolerated Stand Alone Forms: Patient Portal Discharge page Care Plan Goals: COVID-19 infection with mild hypoxia resolved take dexamethasone 1 tablet daily as directed take cough suppressant as needed rest drink plenty of fluids return to [facility] worsening shortness of breath fever lightheadedness or dizziness lie down on side and in prone position take deep breaths as tolerated Health Concerns: continue all home medications Plan of Treatment: follow-up with primary care physician call to make appointment in next 1-2 weeks Assessment: as above
--- NOTE | 2022-03-29 11:18 | MHC.CM.PN ---
pt dcd home no skilled servceis ordered by
== END 2022-03-29 14:03 | disposition home or self-care (01) | DRG 177 ==
LOC: HO.ED 03-29 00:43 → HO.EDOVER 03-29 06:54
PROVIDERS: Emergency Medicine; Admitting Provider Internal Medicine; Emergency Provider Internal Medicine; PCP Internal Medicine; Visit Provider Hospitalist
DX: U07.1 COVID-19 (principal); J12.82 Pneumonia due to coronavirus disease 2019; J96.01 Acute respiratory failure with hypoxia; I10 Essential (primary) hypertension; E78.00 Pure hypercholesterolemia, unspecified; Z88.2 Allergy status to sulfonamides; Z79.899 Other long term (current) drug therapy
CPT/HCPCS: 36415; 71046; 71275; 80048; 80076; 83690; 84145; 84484; 85025; 85379; 87635; 93005; 93010; 94640; 99283; 99285; J1100; J1650; J8540; Q9967

== ENCOUNTER 2022-04-09 07:26 | Outpatient (REF) | payer MEDICARE, SELFPAY ==
[2022-04-09 07:46] LABS: MANUAL DIFF FLAG NO
[2022-04-09 08:18] LABS: Basophils Percent Auto 0.6 % (0-2); Eosinophils Absolute Auto 0.1 X10*3/uL (0.0-0.4); Eosinophils Percent Auto 1.8 % (0-4); Hematocrit 45.3 % (42.0-52.0); Hemoglobin 14.7 g/dl (14.0-18.0); Imm Gran Abs Auto 0.02 X10*3/uL (0.00-0.03); Imm Gran Pct Auto 0.4 % (0.0-0.4); Lymphocytes Absolute Auto 1.6 X10*3/uL (1.2-4.9); Lymphocytes Percent Auto 32.7 % (20-40); Mean Corpuscular HGB Conc 32.5 g/dl (31.0-36.0); Mean Corpuscular Hemoglobin 27.5 pg (27.0-33.0); Mean Corpuscular Volume 84.8 fL (80.0-98.0); Mean Platelet Volume 11.6 fL (9.4-12.4); Monocytes Absolute Auto 0.5 X10*3/uL (0.1-1.2); Monocytes Percent Auto 10.8 % (2-11); Neutrophils Absolute Auto 2.7 x10*3/uL (2.0-8.3); Neutrophils Percent Auto 53.7 % (45-73); Platelet Count 190 X10*3/uL (160-400); Red Blood Count 5.34 X10*6/uL (4.60-5.80); Red Cell Distribution Width 13.2 % (11.0-16.0); White Blood Count 4.9 X10*3/uL (4.8-10.8)
[2022-04-09 08:57] LABS: Alanine Aminotransferase 30 U/L (0-40); Albumin Level 4.2 g/dL (3.5-5.0); Alkaline Phosphatase 42 U/L (39-117); Anion Gap 16 (12-20); Aspartate Amino Transferase 33 U/L (5-37); Bilirubin Total 1.2 mg/dL (0.0-1.0); Blood Urea Nitrogen 18 mg/dL (9-16); Calcium 9.2 mg/dL (8.4-10.2); Carbon Dioxide 23 mmol/L (22-29); Chloride 105 mmol/L (96-108); Cholesterol 135 mg/dL; Estimated Glomerular Filt Rate > 60; Glucose Fasting 90 mg/dL (60-99); HDL Cholesterol 36 mg/dL; LDL Cholesterol Calculated 77 mg/dl; Potassium 4.7 mmol/L (3.3-5.1); Sodium 139 mmol/L (135-145); Total Protein 7.2 g/dL (6.5-8.0); Triglycerides 112 mg/dL
[2022-04-09 09:12] LABS: Free T4 (Free Thyroxine) 0.98 ng/dL (0.71-1.85); Thyroid Stimulating Hormone 3.36 uIU/mL (0.32-4.0)
[2022-04-09 09:50] LABS: Appearance Urine Clear; Color Urine Yellow; Glucose Urine UA Negative (Negative); Leukocyte Esterase Urine Negative (Negative); Nitrite Urine Negative (Negative); PH 6.5 (5.0-9.0); Specific Gravity - Urine 1.015 (1.005-1.025); Urine Blood Negative (Negative); Urine Ketones Negative (Negative); Urine Protein Negative (Neg-Trace)
== END 2022-04-09 07:27 | disposition home or self-care (01) ==
LOC: HO.LAB 07:26
PROVIDERS: PCP Internal Medicine; Visit Provider Internal Medicine
DX: E55.9 Vitamin D deficiency, unspecified (principal); I10 Essential (primary) hypertension; R79.89 Other specified abnormal findings of blood chemistry; E78.00 Pure hypercholesterolemia, unspecified
CPT/HCPCS: 36415; 80053; 80061; 81003; 82306; 84439; 84443; 85025

== ENCOUNTER 2022-07-10 09:18 | Outpatient (REF) | payer MEDICARE, SELFPAY ==
[2022-07-10 09:32] LABS: MANUAL DIFF FLAG NO
[2022-07-10 09:42] LABS: Basophils Absolute Auto 0.1 X10*3/uL (0.0-0.2); Basophils Percent Auto 0.9 % (0-2); Eosinophils Absolute Auto 0.3 X10*3/uL (0.0-0.4); Eosinophils Percent Auto 4.3 % (0-4); Hematocrit 45.8 % (42.0-52.0); Hemoglobin 14.8 g/dl (14.0-18.0); Imm Gran Abs Auto 0.01 X10*3/uL (0.00-0.03); Imm Gran Pct Auto 0.2 % (0.0-0.4); Lymphocytes Absolute Auto 1.4 X10*3/uL (1.2-4.9); Lymphocytes Percent Auto 24.7 % (20-40); Mean Corpuscular HGB Conc 32.3 g/dl (31.0-36.0); Mean Corpuscular Hemoglobin 28.2 pg (27.0-33.0); Mean Corpuscular Volume 87.2 fL (80.0-98.0); Mean Platelet Volume 11.4 fL (9.4-12.4); Monocytes Absolute Auto 0.5 X10*3/uL (0.1-1.2); Monocytes Percent Auto 8.5 % (2-11); Neutrophils Absolute Auto 3.5 x10*3/uL (2.0-8.3); Neutrophils Percent Auto 61.4 % (45-73); Platelet Count 169 X10*3/uL (160-400); Red Blood Count 5.25 X10*6/uL (4.60-5.80); Red Cell Distribution Width 13.2 % (11.0-16.0); White Blood Count 5.8 X10*3/uL (4.8-10.8)
[2022-07-10 10:25] LABS: Alanine Aminotransferase 21 U/L (0-40); Alkaline Phosphatase 49 U/L (39-117); Anion Gap 8 (12-20); Aspartate Amino Transferase 22 U/L (5-37); Bilirubin Total 1.1 mg/dL (0.0-1.0); Blood Urea Nitrogen 14 mg/dL (9-16); Calcium 9.2 mg/dL (8.4-10.2); Carbon Dioxide 29 mmol/L (22-29); Chloride 107 mmol/L (96-108); Cholesterol 135 mg/dL; Estimated Glomerular Filt Rate > 60; Glucose Fasting 91 mg/dL (60-99); HDL Cholesterol 36 mg/dL; LDL Cholesterol Calculated 71 mg/dl; Potassium 4.3 mmol/L (3.3-5.1); Sodium 140 mmol/L (135-145); Total Protein 6.8 g/dL (6.5-8.0); Triglycerides 140 mg/dL
[2022-07-10 10:42] LABS: TSH reflex Free T4 3.69 uIU/mL (0.32-4.0); Vitamin D 25-OH Total 34.9 ng/mL (>30)
[2022-07-10 11:12] LABS: Appearance Urine Clear; Color Urine Yellow; Glucose Urine UA Negative (Negative); Leukocyte Esterase Urine Negative (Negative); Nitrite Urine Negative (Negative); Specific Gravity - Urine 1.015 (1.005-1.025); Urine Blood Negative (Negative); Urine Ketones Negative (Negative); Urine Protein Negative (Neg-Trace)
== END 2022-07-10 09:19 | disposition home or self-care (01) ==
LOC: HO.LAB 09:18
PROVIDERS: PCP Internal Medicine; Visit Provider Internal Medicine
DX: E78.00 Pure hypercholesterolemia, unspecified (principal); E55.9 Vitamin D deficiency, unspecified; R30.0 Dysuria; I10 Essential (primary) hypertension
CPT/HCPCS: 36415; 80053; 80061; 81003; 82306; 84443; 85025

== ENCOUNTER 2022-10-28 08:34 | Outpatient (REF) | payer MEDICARE, SELFPAY ==
[2022-10-28 08:51] LABS: MANUAL DIFF FLAG NO
[2022-10-28 09:20] LABS: Basophils Absolute Auto 0.1 X10*3/uL (0.0-0.2); Eosinophils Absolute Auto 0.3 X10*3/uL (0.0-0.4); Eosinophils Percent Auto 5.4 % (0-4); Hematocrit 46.3 % (42.0-52.0); Hemoglobin 14.9 g/dl (14.0-18.0); Imm Gran Abs Auto 0.01 X10*3/uL (0.00-0.03); Imm Gran Pct Auto 0.2 % (0.0-0.4); Lymphocytes Absolute Auto 1.9 X10*3/uL (1.2-4.9); Mean Corpuscular HGB Conc 32.2 g/dl (31.0-36.0); Mean Corpuscular Hemoglobin 27.9 pg (27.0-33.0); Mean Corpuscular Volume 86.7 fL (80.0-98.0); Mean Platelet Volume 11.6 fL (9.4-12.4); Monocytes Absolute Auto 0.7 X10*3/uL (0.1-1.2); Neutrophils Percent Auto 50.4 % (45-73); Platelet Count 177 X10*3/uL (160-400); Red Blood Count 5.34 X10*6/uL (4.60-5.80); Red Cell Distribution Width 13.3 % (11.0-16.0); White Blood Count 5.9 X10*3/uL (4.8-10.8)
[2022-10-28 09:54] LABS: Alanine Aminotransferase 25 U/L (0-40); Albumin Level 4.1 g/dL (3.5-5.0); Alkaline Phosphatase 46 U/L (39-117); Anion Gap 8 (12-20); Aspartate Amino Transferase 24 U/L (5-37); Bilirubin Total 1.1 mg/dL (0.0-1.0); Blood Urea Nitrogen 21 mg/dL (9-16); Calcium 9.4 mg/dL (8.4-10.2); Carbon Dioxide 28 mmol/L (22-29); Chloride 108 mmol/L (96-108); Cholesterol 134 mg/dL; Estimated Glomerular Filt Rate > 60; Glucose Fasting 86 mg/dL (60-99); HDL Cholesterol 34 mg/dL; LDL Cholesterol Calculated 72 mg/dl; Potassium 4.4 mmol/L (3.3-5.1); Sodium 140 mmol/L (135-145); Total Protein 6.9 g/dL (6.5-8.0); Triglycerides 141 mg/dL
[2022-10-28 10:12] LABS: TSH reflex Free T4 3.87 uIU/mL (0.32-4.0); Vitamin D 25-OH Total 37.8 ng/mL (>30)
[2022-10-28 10:13] LABS: Appearance Urine Clear; Color Urine Yellow; Glucose Urine UA Negative (Negative); Leukocyte Esterase Urine Trace (Negative); Nitrite Urine Negative (Negative); PH 5.5 (5.0-9.0); Specific Gravity - Urine 1.025 (1.005-1.025); UMIC TRIGGER UACC YES; Urine Blood Negative (Negative); Urine Ketones Negative (Negative); Urine Protein Negative (Neg-Trace)
[2022-10-28 10:24] LABS: Bacteria Urine None Seen (None Seen); Hyaline Casts Urine 0-2 /LPF (0-2); RBC Urine 0-2 /HPF (0-2); Squamous Epithelial Cell Urine 0-2 /HPF (0-2); WBC Urine 0-5 /HPF (0-5)
== END 2022-10-28 08:35 | disposition home or self-care (01) ==
LOC: HO.LAB 08:34
PROVIDERS: PCP Internal Medicine; Visit Provider Internal Medicine
DX: I10 Essential (primary) hypertension (principal); E55.9 Vitamin D deficiency, unspecified; E78.00 Pure hypercholesterolemia, unspecified
CPT/HCPCS: 36415; 80053; 80061; 81001; 81003; 82306; 84443; 85025

== ENCOUNTER 2023-03-06 09:04 | Outpatient (REF) | payer MEDICARE, SELFPAY ==
[2023-03-06 09:20] LABS: MANUAL DIFF FLAG NO
[2023-03-06 09:44] LABS: Basophils Percent Auto 0.5 % (0-2); Eosinophils Absolute Auto 0.4 X10*3/uL (0.0-0.4); Eosinophils Percent Auto 5.8 % (0-4); Hematocrit 46.4 % (42.0-52.0); Hemoglobin 14.9 g/dl (14.0-18.0); Imm Gran Abs Auto 0.02 X10*3/uL (0.00-0.03); Imm Gran Pct Auto 0.3 % (0.0-0.4); Lymphocytes Absolute Auto 1.7 X10*3/uL (1.2-4.9); Lymphocytes Percent Auto 22.6 % (20-40); Mean Corpuscular HGB Conc 32.1 g/dl (31.0-36.0); Mean Corpuscular Hemoglobin 27.6 pg (27.0-33.0); Mean Corpuscular Volume 85.9 fL (80.0-98.0); Mean Platelet Volume 10.8 fL (9.4-12.4); Monocytes Absolute Auto 0.7 X10*3/uL (0.1-1.2); Monocytes Percent Auto 9.7 % (2-11); Neutrophils Absolute Auto 4.5 x10*3/uL (2.0-8.3); Neutrophils Percent Auto 61.1 % (45-73); Platelet Count 199 X10*3/uL (160-400); Red Cell Distribution Width 13.1 % (11.0-16.0); White Blood Count 7.4 X10*3/uL (4.8-10.8)
[2023-03-06 10:30] LABS: Alanine Aminotransferase 18 U/L (0-40); Albumin Level 4.3 g/dL (3.5-5.0); Alkaline Phosphatase 55 U/L (39-117); Anion Gap 12 (12-20); Aspartate Amino Transferase 23 U/L (5-37); Bilirubin Total 0.6 mg/dL (0.0-1.0); Blood Urea Nitrogen 15 mg/dL (9-16); Calcium 9.8 mg/dL (8.4-10.2); Carbon Dioxide 27 mmol/L (22-29); Chloride 107 mmol/L (96-108); Cholesterol 135 mg/dL (<200); Estimated Glomerular Filt Rate > 60; Glucose Fasting 93 mg/dL (60-99); HDL Cholesterol 37 mg/dL (>40); LDL Cholesterol Calculated 72 mg/dL (<100); Potassium 4.5 mmol/L (3.3-5.1); Sodium 141 mmol/L (135-145); Total Protein 7.7 g/dL (6.5-8.0); Triglycerides 130 mg/dL (<150)
[2023-03-06 10:42] LABS: Appearance Urine Clear; Color Urine Yellow; Glucose Urine UA Negative (Negative); Leukocyte Esterase Urine Negative (Negative); Nitrite Urine Negative (Negative); Specific Gravity - Urine 1.015 (1.005-1.025); Urine Blood Negative (Negative); Urine Ketones Negative (Negative); Urine Protein Negative (Neg-Trace)
[2023-03-06 10:50] LABS: TSH reflex Free T4 6.57 uIU/mL (0.32-4.0); Vitamin D 25-OH Total 43.4 ng/mL (>30)
[2023-03-06 11:43] LABS: Free T4 (Free Thyroxine) 0.83 ng/dL (0.71-1.85)
== END 2023-03-06 09:05 | disposition home or self-care (01) ==
LOC: HO.LAB 09:04
PROVIDERS: PCP Internal Medicine; Visit Provider Internal Medicine
DX: I10 Essential (primary) hypertension (principal); E55.9 Vitamin D deficiency, unspecified; R30.0 Dysuria; E78.00 Pure hypercholesterolemia, unspecified
CPT/HCPCS: 36415; 80053; 80061; 81003; 82306; 84439; 84443; 85025

== ENCOUNTER 2023-03-11 09:53 | Outpatient (AMB) | payer MEDICARE, SELFPAY ==
[2023-03-11 09:55] VITALS: BP 110/78; PULSE 62; O2SAT 97; BMI 32.3
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
== END 2023-03-11 10:52 | disposition home or self-care (01) ==
PROVIDERS: Visit Provider Internal Medicine
DX: I10 Essential (primary) hypertension (principal); H34.8112 Central retinal vein occlusion, right eye, stable; E55.9 Vitamin D deficiency, unspecified; F41.9 Anxiety disorder, unspecified; E78.00 Pure hypercholesterolemia, unspecified; M81.0 Age-related osteoporosis without current pathological fracture; R79.89 Other specified abnormal findings of blood chemistry; L50.9 Urticaria, unspecified; N28.1 Cyst of kidney, acquired; R31.29 Other microscopic hematuria; E66.9 Obesity, unspecified
CPT/HCPCS: 99214

== ENCOUNTER 2023-06-19 09:42 | Outpatient (REF) | payer MEDICARE, SELFPAY | END 2023-06-19 09:43 | disposition home or self-care (01) | LOC: HO.XRAY 09:42 | PROVIDERS: PCP Internal Medicine; Visit Provider Internal Medicine | DX: U07.1 COVID-19 (principal); J12.82 Pneumonia due to coronavirus disease 2019; R05.9 Cough, unspecified | CPT/HCPCS: 71046 ==

== ENCOUNTER 2023-07-02 09:18 | Outpatient (REF) | payer MEDICARE, SELFPAY ==
--- NOTE | ~2023-07-02 | XR_ITS ---
EXAMINATION: XR CHEST CLINICAL INFORMATION: Lobar pneumonia COMPARISON: 06/19/2023 and 03/28/2022 TECHNIQUE: 2 views of the chest were obtained. FINDINGS: No significant abnormality is noted involving the heart, lungs, mediastinum, bony thorax or soft tissues. XR/XR chest 2V IMPRESSION: Resolution of pneumonia bilaterally
[2023-07-02 09:34] LABS: MANUAL DIFF FLAG NO
[2023-07-02 09:57] LABS: Appearance Urine Clear; Color Urine Yellow; Glucose Urine UA Negative (Negative); Leukocyte Esterase Urine Negative (Negative); Nitrite Urine Negative (Negative); PH 5.5 (5.0-9.0); Urine Blood Negative (Negative); Urine Ketones Negative (Negative); Urine Protein Negative (Neg-Trace)
[2023-07-02 09:57] LABS: Basophils Percent Auto 0.6 % (0-2); Eosinophils Absolute Auto 0.3 X10*3/uL (0.0-0.4); Eosinophils Percent Auto 4.4 % (0-4); Hematocrit 46.2 % (42.0-52.0); Hemoglobin 14.9 g/dl (14.0-18.0); Imm Gran Abs Auto 0.02 X10*3/uL (0.00-0.03); Imm Gran Pct Auto 0.3 % (0.0-0.4); Lymphocytes Absolute Auto 1.5 X10*3/uL (1.2-4.9); Mean Corpuscular HGB Conc 32.3 g/dl (31.0-36.0); Mean Corpuscular Hemoglobin 27.3 pg (27.0-33.0); Mean Corpuscular Volume 84.8 fL (80.0-98.0); Mean Platelet Volume 11.1 fL (9.4-12.4); Monocytes Absolute Auto 0.6 X10*3/uL (0.1-1.2); Monocytes Percent Auto 8.3 % (2-11); Neutrophils Absolute Auto 4.7 x10*3/uL (2.0-8.3); Neutrophils Percent Auto 65.4 % (45-73); Platelet Count 164 X10*3/uL (160-400); Red Blood Count 5.45 X10*6/uL (4.60-5.80); Red Cell Distribution Width 13.2 % (11.0-16.0); White Blood Count 7.1 X10*3/uL (4.8-10.8)
[2023-07-02 10:51] LABS: Alanine Aminotransferase 20 U/L (0-40); Albumin Level 4.1 g/dL (3.5-5.0); Alkaline Phosphatase 53 U/L (39-117); Anion Gap 13 (12-20); Aspartate Amino Transferase 22 U/L (5-37); Bilirubin Total 0.7 mg/dL (0.0-1.0); Blood Urea Nitrogen 16 mg/dL (9-16); Calcium 9.5 mg/dL (8.4-10.2); Carbon Dioxide 25 mmol/L (22-29); Chloride 108 mmol/L (96-108); Cholesterol 126 mg/dL (<200); Estimated Glomerular Filt Rate > 60; Glucose Fasting 95 mg/dL (60-99); HDL Cholesterol 34 mg/dL (>40); LDL Cholesterol Calculated 66 mg/dL (<100); Potassium 4.2 mmol/L (3.3-5.1); Sodium 142 mmol/L (135-145); Total Protein 7.7 g/dL (6.5-8.0); Triglycerides 134 mg/dL (<150)
[2023-07-02 11:10] LABS: Free T4 (Free Thyroxine) 0.82 ng/dL (0.71-1.85); Thyroid Stimulating Hormone 5.19 uIU/mL (0.32-4.0); Vitamin D 25-OH Total 43.6 ng/mL (>30)
== END 2023-07-02 09:19 | disposition home or self-care (01) ==
LOC: HO.LAB 09:18
PROVIDERS: PCP Internal Medicine; Visit Provider Internal Medicine
DX: J18.1 Lobar pneumonia, unspecified organism (principal); R30.0 Dysuria; E78.00 Pure hypercholesterolemia, unspecified; R79.89 Other specified abnormal findings of blood chemistry; I10 Essential (primary) hypertension; E55.9 Vitamin D deficiency, unspecified
CPT/HCPCS: 36415; 71046; 80053; 80061; 81003; 82306; 84439; 84443; 85025

== ENCOUNTER 2023-07-10 10:43 | Outpatient (AMB) | payer MEDICARE, SELFPAY ==
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
[2023-07-10 10:51] VITALS: BP 140/80; PULSE 50; O2SAT 98; BMI 31.9
== END 2023-07-10 11:41 | disposition home or self-care (01) ==
PROVIDERS: PCP Internal Medicine; Visit Provider Internal Medicine
DX: J18.9 Pneumonia, unspecified organism (principal); H34.8112 Central retinal vein occlusion, right eye, stable; E78.00 Pure hypercholesterolemia, unspecified; I10 Essential (primary) hypertension; E55.9 Vitamin D deficiency, unspecified; M81.0 Age-related osteoporosis without current pathological fracture; R79.89 Other specified abnormal findings of blood chemistry; L50.9 Urticaria, unspecified; E66.9 Obesity, unspecified; N28.1 Cyst of kidney, acquired; R31.29 Other microscopic hematuria; F41.9 Anxiety disorder, unspecified
CPT/HCPCS: 99214

== ENCOUNTER 2023-11-13 08:34 | Outpatient (REF) | payer MEDICARE, SELFPAY ==
[2023-11-13 09:04] LABS: MANUAL DIFF FLAG NO
[2023-11-13 09:16] LABS: Basophils Absolute Auto 0.1 X10*3/uL (0.0-0.2); Eosinophils Absolute Auto 0.4 X10*3/uL (0.0-0.4); Eosinophils Percent Auto 7.5 % (0-4); Hematocrit 43.5 % (42.0-52.0); Lymphocytes Absolute Auto 1.6 X10*3/uL (1.2-4.9); Lymphocytes Percent Auto 27.6 % (20-40); Mean Corpuscular HGB Conc 32.2 g/dl (31.0-36.0); Mean Corpuscular Hemoglobin 27.3 pg (27.0-33.0); Mean Platelet Volume 11.2 fL (9.4-12.4); Monocytes Absolute Auto 0.6 X10*3/uL (0.1-1.2); Monocytes Percent Auto 9.6 % (2-11); Neutrophils Absolute Auto 3.2 x10*3/uL (2.0-8.3); Neutrophils Percent Auto 54.3 % (45-73); Platelet Count 162 X10*3/uL (160-400); Red Blood Count 5.12 X10*6/uL (4.60-5.80); Red Cell Distribution Width 13.8 % (11.0-16.0); White Blood Count 5.9 X10*3/uL (4.8-10.8)
[2023-11-13 10:15] LABS: Appearance Urine Clear; Color Urine Yellow; Glucose Urine UA Negative (Negative); Leukocyte Esterase Urine Negative (Negative); Nitrite Urine Negative (Negative); PH 5.5 (5.0-9.0); Urine Blood Negative (Negative); Urine Ketones Negative (Negative); Urine Protein Negative (Neg-Trace)
[2023-11-13 10:20] LABS: Alanine Aminotransferase 24 U/L (0-40); Alkaline Phosphatase 48 U/L (39-117); Anion Gap 12 (12-20); Aspartate Amino Transferase 27 U/L (5-37); Bilirubin Total 0.6 mg/dL (0.0-1.0); Blood Urea Nitrogen 16 mg/dL (9-16); Calcium 9.2 mg/dL (8.4-10.2); Carbon Dioxide 23 mmol/L (22-29); Chloride 109 mmol/L (96-108); Cholesterol 126 mg/dL (<200); Estimated Glomerular Filt Rate > 60; Glucose Fasting 96 mg/dL (60-99); HDL Cholesterol 32 mg/dL (>40); LDL Cholesterol Calculated 67 mg/dL (<100); Sodium 140 mmol/L (135-145); Total Protein 7.2 g/dL (6.5-8.0); Triglycerides 137 mg/dL (<150)
[2023-11-13 10:39] LABS: Free T4 (Free Thyroxine) 0.79 ng/dL (0.71-1.85); Thyroid Stimulating Hormone 5.62 uIU/mL (0.32-4.0); Vitamin D 25-OH Total 36.7 ng/mL (>30)
== END 2023-11-13 08:35 | disposition home or self-care (01) ==
LOC: HO.LAB 08:34
PROVIDERS: PCP Internal Medicine; Visit Provider Internal Medicine
DX: D64.9 Anemia, unspecified (principal); E78.00 Pure hypercholesterolemia, unspecified; R30.0 Dysuria; R79.89 Other specified abnormal findings of blood chemistry; E55.9 Vitamin D deficiency, unspecified
CPT/HCPCS: 36415; 80053; 80061; 81003; 82306; 84439; 84443; 85025

== ENCOUNTER 2023-11-20 12:55 | Outpatient (AMB) | payer MEDICARE, SELFPAY ==
[2023-11-20 13:01] VITALS: BP 126/80; PULSE 46; O2SAT 98; BMI 32.5
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
== END 2023-11-20 13:53 | disposition home or self-care (01) ==
PROVIDERS: PCP Internal Medicine; Visit Provider Internal Medicine
DX: E78.00 Pure hypercholesterolemia, unspecified (principal); I10 Essential (primary) hypertension; H34.8112 Central retinal vein occlusion, right eye, stable; E55.9 Vitamin D deficiency, unspecified; M81.0 Age-related osteoporosis without current pathological fracture; R79.89 Other specified abnormal findings of blood chemistry; L50.9 Urticaria, unspecified; N28.1 Cyst of kidney, acquired; R31.29 Other microscopic hematuria; F41.9 Anxiety disorder, unspecified; E66.9 Obesity, unspecified
CPT/HCPCS: 99214

== ENCOUNTER 2023-11-25 08:59 | Outpatient (REF) | payer MEDICARE, SELFPAY ==
--- NOTE | ~2023-11-25 | MM_ITS ---
EXAMINATION: BONE DENSITOMETRY CLINICAL INDICATION: Age-related osteoporosis without current pathological fracture. COMPARISON: Previous BD dated 01/03/2021 and baseline BD dated 03/26/2012. TECHNIQUE: Using a [employer] DXA System (software version: 13.1) manufactured by [employer], dual-energy x-ray absorptiometry was performed of the lumbar spine and left hip. The images are of good technical quality. Summary results are attached. FINDINGS: LEFT FEMUR, NECK: Current: BMD 0.763 g/cm2, Z-score -1.6, T-score -2.4, osteopenia. Prior: BMD 0.779 g/cm2. Baseline: BMD 0.733 g/cm2. LEFT FEMUR, TOTAL: Current: BMD 0.834 g/cm2, Z-score -1.5, T-score -1.9, osteopenia, 1.7% increase from previous, 3.6% increase from baseline (<5% change is not significant). Prior: BMD 0.820 g/cm2. Baseline: BMD 0.805 g/cm2. AP SPINE L1-L4: Current: BMD 1.439 g/cm2, Z-score 1.6, T-score 1.8, normal, 1.8% decrease from previous, 8.7% increase from baseline (<5% change is not significant). Prior: BMD 1.466 g/cm2. Baseline: BMD 1.324 g/cm2. IDENTIFIED RISK FACTORS: History of fracture (adult). HISTORY OF FRACTURE: Femur/hip. MEDICATIONS: Calcium or multivitamin. Vitamin D. MM/XR DEXA axial skeleton IMPRESSION: 1. DIAGNOSIS: Osteopenia based on the lowest T-score value of -2.4 in the femoral neck applying World Health Organization criteria. 2. 10-YEAR FRACTURE RISK PREDICTION, FRAX: Major osteoporotic fracture (clinical spine, forearm, hip or shoulder) 13.6%. Hip fracture 4.1%. 3. Treatment Recommendations: NOF guidelines recommend consideration for treatment in postmenopausal women and men age 50 and older presenting with the following: -A hip or vertebral (clinical or morphometric) fracture. -T-score less than or equal to -2.5 at the femoral neck or spine after appropriate evaluation to exclude secondary causes. -Low bone mass at the hip or spine and a 10-year fracture probability by FRAX of greater than or equal to 3% for hip fracture or greater than or equal to 20% for major osteoporotic fracture based on the [place] adapted WHO algorithm. 4. Other Recommendations: All treatment decisions require clinical judgment and consideration of individual patient factors, including patient preferences, comorbidities, previous drug use, risk factors not captured in the FRAX model (e.g. frailty, falls, vitamin D deficiency, increased bone turnover, interval significant decline in bone density) and possible under or overestimation of fracture risk by FRAX. Additional medical evaluation for secondary cause of low bone mineral density may be appropriate. FUTURE SCAN RECOMMENDATION: People with diagnosed cases of osteoporosis or at high risk for fracture should have regular bone mineral density tests. For patients eligible for Medicare, routine testing is allowed once every 2 years. The testing frequency can be increased to one year for patients who have rapidly progressing disease, those who are receiving or discontinuing medical therapy to restore bone mass, or have additional risk factors.
== END 2023-11-25 09:00 | disposition home or self-care (01) ==
LOC: HO.MAMMO 08:59
PROVIDERS: PCP Internal Medicine; Visit Provider Internal Medicine
DX: Z13.820 Encounter for screening for osteoporosis (principal); M81.0 Age-related osteoporosis without current pathological fracture
CPT/HCPCS: 77080

== ENCOUNTER 2024-03-15 09:32 | Outpatient (REF) | payer MEDICARE, SELFPAY ==
[2024-03-15 09:51] LABS: MANUAL DIFF FLAG NO
[2024-03-15 10:15] LABS: Basophils Absolute Auto 0.1 X10*3/uL (0.0-0.2); Basophils Percent Auto 0.8 % (0-2); Eosinophils Absolute Auto 0.6 X10*3/uL (0.0-0.4); Eosinophils Percent Auto 8.9 % (0-4); Hematocrit 44.7 % (42.0-52.0); Hemoglobin 14.4 g/dl (14.0-18.0); Imm Gran Abs Auto 0.01 X10*3/uL (0.00-0.03); Imm Gran Pct Auto 0.2 % (0.0-0.4); Lymphocytes Absolute Auto 1.7 X10*3/uL (1.2-4.9); Lymphocytes Percent Auto 25.1 % (20-40); Mean Corpuscular HGB Conc 32.2 g/dl (31.0-36.0); Mean Corpuscular Hemoglobin 27.6 pg (27.0-33.0); Mean Corpuscular Volume 85.6 fL (80.0-98.0); Mean Platelet Volume 11.1 fL (9.4-12.4); Monocytes Absolute Auto 0.5 X10*3/uL (0.1-1.2); Monocytes Percent Auto 7.8 % (2-11); Neutrophils Absolute Auto 3.8 x10*3/uL (2.0-8.3); Neutrophils Percent Auto 57.2 % (45-73); Platelet Count 167 X10*3/uL (160-400); Red Blood Count 5.22 X10*6/uL (4.60-5.80); Red Cell Distribution Width 13.2 % (11.0-16.0); White Blood Count 6.7 X10*3/uL (4.8-10.8)
[2024-03-15 11:05] LABS: Appearance Urine Clear; Color Urine Yellow; Glucose Urine UA Negative (Negative); Leukocyte Esterase Urine Negative (Negative); Nitrite Urine Negative (Negative); PH 6.5 (5.0-9.0); Specific Gravity - Urine 1.015 (1.005-1.025); Urine Blood Negative (Negative); Urine Ketones Negative (Negative); Urine Protein Negative (Neg-Trace)
[2024-03-15 11:10] LABS: Alanine Aminotransferase 25 U/L (0-40); Albumin Level 4.2 g/dL (3.5-5.0); Alkaline Phosphatase 42 U/L (39-117); Anion Gap 11 (12-20); Aspartate Amino Transferase 27 U/L (5-37); Bilirubin Total 0.8 mg/dL (0.0-1.0); Blood Urea Nitrogen 11 mg/dL (9-16); Calcium 9.2 mg/dL (8.4-10.2); Carbon Dioxide 26 mmol/L (22-29); Chloride 108 mmol/L (96-108); Cholesterol 122 mg/dL (<200); Estimated Glomerular Filt Rate > 60; Free T4 (Free Thyroxine) 0.84 ng/dL (0.71-1.85); Glucose Fasting 95 mg/dL (60-99); HDL Cholesterol 34 mg/dL (>40); LDL Cholesterol Calculated 59 mg/dL (<100); Potassium 4.1 mmol/L (3.3-5.1); Sodium 141 mmol/L (135-145); Thyroid Stimulating Hormone 5.07 uIU/mL (0.32-4.0); Total Protein 7.3 g/dL (6.5-8.0); Triglycerides 147 mg/dL (<150)
== END 2024-03-15 09:33 | disposition home or self-care (01) ==
LOC: HO.LAB 09:32
PROVIDERS: PCP Internal Medicine; Visit Provider Internal Medicine
DX: D64.9 Anemia, unspecified (principal); R30.0 Dysuria; E55.9 Vitamin D deficiency, unspecified; E78.00 Pure hypercholesterolemia, unspecified; R79.89 Other specified abnormal findings of blood chemistry
CPT/HCPCS: 36415; 80053; 80061; 81003; 82306; 84439; 84443; 85025

== ENCOUNTER 2024-03-22 13:17 | Outpatient (AMB) | payer MEDICARE, SELFPAY ==
[2024-03-22 13:23] VITALS: BP 122/80; PULSE 65; O2SAT 97; BMI 32.5
--- NOTE | 2024-03-22 13:23 | MHC.PC.OV ---
Vital Signs 03/22/24 13:23 Height 5 ft 11 in Weight 233 lb BMI 32.5 BP 122/80 Blood Pressure Location Lt brachial Position Sitting Pulse 65 Pulse Source Pulse Oximeter Pulse Oximetry (%) 97 Oxygen Delivery Method Room Air Intake Visit Reasons: 4 Month F/U Doors Prefitter Required: No Accompanied by: Spouse Allergies Sulfa (Sulfonamide Antibiotics) [SULFA (SULFONAMIDE ANTIBIOTICS)] Allergy (Unknown, Verified 03/22/24 13:48) HIVES colonoscopy prep Allergy (Unknown, Uncoded 03/22/24 13:48) Unknown Silk tape Allergy (Unknown, Uncoded 03/22/24 13:48) rash Medication List - Last Reconciled 03/22/24 by Mike Powell MD cetirizine 10 mg PO DAILY 90 days cholecalciferol (vitamin D3) 25 mcg PO DAILY diphenhydramine HCl (Benadryl) 25 mg PO TID PRN metoprolol tartrate 25 mg PO BID 90 days montelukast 10 mg PO BEDTIME 90 days multivitamin 1 tab PO DAILY sertraline 25 mg PO DAILY 90 days simvastatin 40 mg PO BEDTIME 90 days Ventolin HFA 90 mcg/actuation (albuterol sulfate) 2 puffs inhalation Q6H PRN 30 days NS Tobacco use date assessed: 03/22/24 Fall risk assessment: No Falls in past year Last assessed Fall Risk: 03/22/24 Dental Screening Dental Screen Date: 03/22/24 Did you have a dental visit in the last 12 months?: Yes Did you have a dental problem in the last 6 months where you did not have access to dental care?: No Was dental information given to patient?: Patient has dentist HPI 4 Month F/U HPI Details Patient comes in today for his follow up visit States that he currently feels okay He denies any headaches or dizziness Denies any chest pains, no increased shortness of breath No nausea/ vomiting, no abdominal pain No change in bowel habits noted He had his follow up labs done last week - to discuss his results [facility] Medical History (Updated 03/22/24 @ 13:56 by Mike Powell MD) Obesity (BMI 30-39.9) Microscopic hematuria Renal cyst Stable central retinal vein occlusion of right eye Hives Osteoporosis Vitamin D deficiency Benign essential hypertension Pure hypercholesterolemia Surgical History History of colonoscopy History of inguinal hernia repair Family History Father Medical history unknown Mother Hypertension Sister No problems noted. Social History Housing: House Alcohol intake: never Patient Tobacco Use Status: Never used Tobacco e-Cigarette/Vaping Use: Never Used Second Hand Smoke Exposure: No service: No Current occupational status: retired Cognitive needs: No Hearing needs: No Vision needs: Yes Questionnaire PHQ-9 Over the last 2 weeks, how often have you been bothered by any of the following problems? 1. Little interest or pleasure in doing things: not at all 2. Feeling down, depressed, or hopeless: not at all 3. Trouble falling or staying asleep, or sleeping too much: not at all 4. Feeling tired or having little energy: not at all 5. Poor appetite or overeating: not at all 6. Feeling bad about yourself - or that you are a failure or have let yourself or your family down: not at all 7. Trouble concentrating on things, such as reading the newspaper or watching television: not at all 8. Moving or speaking so slowly that other people could have noticed. Or the opposite - being so fidgety or restless that you have been moving around a lot more than usual: not at all 9. Thoughts that you would be better off or of hurting yourself in some way: not at all Total score: 0 Depression Screening Interpretation: Negative Depression Screening Done: Yes 74362 - PHQ-9 Billing: Yes Source: Developed by Drs. Froylan Ghosh, Hoda Redd, Bebeto Ch and colleagues, with an educational eduardo from [employer]. Thrive Questionnaire Date Thrive assessed: 07/11/23 Are you currently unemployed and looking for a job?: No LLOYD-7 AMB Questionnaire LLOYD-7 Date LLOYD - 7 assessed: 11/20/23 Source: Developed by Drs. Froylan Ghosh, Hoda Redd, Bebeto Ch and colleagues, with an educational eduardo from [employer]. Review of Systems Const Denies chills, Denies fatigue, Denies fever(s) and Denies headache(s) ENT Denies dysphagia, Denies dizziness, Denies otalgia, Denies headache(s), Denies neck pain, Denies odynophagia and Denies sore throat Card Denies chest pain, Denies rapid heart rate, Denies palpitations and Denies dyspnea Resp Denies chest congestion, Denies cough and Denies dyspnea GI Denies abdominal pain, Denies constipation, Denies dysphagia, Denies heartburn, Denies diarrhea, Denies nausea, Denies odynophagia and Denies vomiting Denies difficulty urinating, Denies dysuria, Denies nocturia and Denies urinary frequency Musc Denies back pain and Denies neck pain Skin/Breast Details: recurrent hives Denies rash Neuro Denies dizziness and Denies headache(s) Psych Denies anxiety (feels his anxiety has been well-controlled on his Rx) Endo Denies fatigue and Denies palpitations Aller/Immun Reports urticaria (on and off) Physical exam (Primary Care) Vital Signs: Last Vital Signs Pulse 65 03/22/24 13:23 BP 122/80 03/22/24 13:23 Pulse Ox 97 03/22/24 13:23 Oxygen Delivery Method Room Air 03/22/24 13:23 BMI result Body Mass Index 32.5 Tobacco/Smoking Status: Tobacco use Status Tobacco use date assessed 03/22/24 03/22/24 13:25 Patient Tobacco Use Status Never used Tobacco 03/22/24 13:25 e-Cigarette/Vaping Use Never Used 03/22/24 13:25 PHQ-9: PHQ-9 Score PHQ-9: Total score 0 03/22/24 13:25 Depression Screening Interpretation: Negative Thrive Assessment: Date of Thrive Assessment Date Thrive assessed 07/11/23 03/22/24 13:25 Const General: no acute distress and alert HENMT Ears: TM's normal bilaterally and EAC's normal Throat: Yes posterior oropharynx normal and Yes tonsils normal (no TP congestion noted) Neck Neck: Yes no lymphadenopathy and Yes supple Thyroid: Thyroid normal Resp Auscultation: clear to auscultation bilaterally, no crackles, no rales and no wheezes Cardio Rate: regular rate Rhythm: regular rhythm Heart sounds: no murmurs GI Palpation (GI): Soft to palpation and nontender Auscultation: normal bowel sounds General: Yes no CVA tenderness Back/Spine/Pelvis Back: no CVA tenderness Thoracic/Lumbar Spine: No lumbar spinal tenderness Skin Other: (+) few scattered erythematous small urticarial lesions Extrem General: Yes no clubbing, cyanosis or edema Results Reviewed Results Reviewed: Laboratory Tests 03/15/24 09:50 WBC 6.7 Hgb 14.4 Hct 44.7 Plt Count 167 Sodium 141 Potassium 4.1 Creatinine 0.87 Estimated GFR > 60 Fasting Glucose 95 AST 27 ALT 25 Triglycerides 147 Cholesterol 122 LDL Cholesterol, Calc 59 HDL Cholesterol 34 L 25-OH Vitamin D Total 39.0 TSH 5.07 H Free T4 0.84 Ur Specific [place] 1.015 Urine Protein Negative Urine Glucose (UA) Negative Urine Blood Negative Urine Nitrite Negative Ur Leukocyte Esterase Negative Assessment and Plan Assessment & Plan (1) Pure hypercholesterolemia: Code(s): E78.00 - Pure hypercholesterolemia, unspecified Plan: Results of his labs done last week reviewed and discussed with patient Reinforced low cholesterol diet Continue Simvastatin 40 mg QD Will recheck his labs and fasting lipids in 4 months for follow up (2) Benign essential hypertension: Code(s): I10 - Essential (primary) hypertension Plan: Reinforced low sodium diet -?goal is systolic BP of at least 120 to 130 mm or less Continue Metoprolol 25 mg BID (3) Vitamin D deficiency: Code(s): E55.9 - Vitamin D deficiency, unspecified Plan: Continue Vitamin D3 1000 units QD (4) Osteoporosis: Code(s): M81.0 - Age-related osteoporosis without current pathological fracture Qualifiers: Osteoporosis type: age-related Presence of current pathological fracture: unspecified Qualified Code(s): M81.0 - Age-related osteoporosis without current pathological fracture Plan: His most recent repeat BMD done on 11/25/2023 revealed (+) 8.7% increase in his BMD in the AP spine; his left femur BMD is mostly unchanged from his previous BMD on 01/03/2021 - will continue to monitor his BMD regularly every 2 to 3 years Follow-up with endocrinology as scheduled (5) Elevated TSH: Code(s): R79.89 - Other specified abnormal findings of blood chemistry Plan: His serum TSH again remains slightly elevated and his free T4 is low normal on his recent labs Patient is currently still clinically euthyroid but he is again advised that he may be getting to a point where he will require thyroid hormone Rx supplement soon Will continue to monitor his TFTs closely for now (6) Hives: Code(s): L50.9 - Urticaria, unspecified Plan: States that he normally starts getting these around the same time of the year, in the late summer/early fall Continue Cetirizine 10 mg QD PRN and Montelukast 10 mg QD Have advised him of the option of referring him for allergy testing and immunotherapy for his allergies He feels like his allergies are well-controlled at this time and will consider allergy testing if his symptoms get worse (7) Stable central retinal vein occlusion of right eye: Code(s): H34.8112 - Central retinal vein occlusion, right eye, stable Plan: He has mild central retinal vein occlusion in the right eye as well as retinal hemorrhages and mild vessel tortuosity and an epiretinal membrane on exam by retinal specialist back in 2019 - was advised to optimize control of his BP, blood sugar and cholesterol to prevent disease progression Follow-up with retina specialist and Ophthalmology as scheduled for continuing surveillance and management (8) Renal cyst: Code(s): N28.1 - Cyst of kidney, acquired Plan: Repeat renal US done back in 07/2019 showed (+) perirenal cysts bilaterally that are mostly unchanged from previous Renal US done in September 2021 revealed (+) left renal pelviectasis without radha hydronephrosis; benign-appearing bilateral renal and peripelvic renal cysts - NO imaging follow-up is recommended further (9) Microscopic hematuria: Code(s): R31.29 - Other microscopic hematuria Plan: Benign - urology workups have all been negative in the past except for renal cysts Follow up with urology as scheduled (10) Anxiety: Code(s): F41.9 - Anxiety disorder, unspecified Plan: Continue Sertraline 25 mg QD (11) Obesity (BMI 30-39.9): Code(s): E66.9 - Obesity, unspecified Plan: Reinforced diet/exercise as tolerated/ lose weight Plan Follow up in 4 months Orders: Orders Complete Blood Count Auto Diff 4 Months D64.9 - Anemia, unspecified Comprehensive [place]. Panel Fast 4 Months E78.00 - Pure hypercholesterolemia, unspecified Lipid Panel 4 Months E78.00 - Pure hypercholesterolemia, unspecified Thyroid Stimulating Hormone 4 Months R79.89 - Other specified abnormal findings of blood chemistry Vitamin D 25-OH Total 4 Months E55.9 - Vitamin D deficiency, unspecified UA CC w/rflx Micro + Cult 4 Months R30.0 - Dysuria Free T4 (Free Thyroxine) 4 Months R79.89 - Other specified abnormal findings of blood chemistry Coding Level of Care Code Est Pt Level 4 (59304) Diagnoses Pure hypercholesterolemia E78.00 Benign essential hypertension I10 Vitamin D deficiency E55.9 Age related osteoporosis, unspecified pathological fracture presence M81.0 Osteoporosis type: age-related Presence of current pathological fracture: unspecified Elevated TSH R79.89 Hives L50.9 Stable central retinal vein occlusion of right eye H34.8112 Renal cyst N28.1 Microscopic hematuria R31.29 Anxiety F41.9 Obesity (BMI 30-39.9) E66.9
== END 2024-03-22 14:12 | disposition home or self-care (01) ==
PROVIDERS: PCP Internal Medicine; Visit Provider Internal Medicine
DX: E78.00 Pure hypercholesterolemia, unspecified (principal); H34.8112 Central retinal vein occlusion, right eye, stable; I10 Essential (primary) hypertension; E55.9 Vitamin D deficiency, unspecified; M81.0 Age-related osteoporosis without current pathological fracture; L50.9 Urticaria, unspecified; N28.1 Cyst of kidney, acquired; R31.29 Other microscopic hematuria; F41.9 Anxiety disorder, unspecified; E66.9 Obesity, unspecified

== ENCOUNTER → 2024-03-22 13:17 | Outpatient (BNVA) | payer MEDICARE, SELFPAY | PROVIDERS: PCP Internal Medicine; Visit Provider Internal Medicine | DX: E78.00 Pure hypercholesterolemia, unspecified (principal); I10 Essential (primary) hypertension; E55.9 Vitamin D deficiency, unspecified; M81.0 Age-related osteoporosis without current pathological fracture; R79.89 Other specified abnormal findings of blood chemistry; L50.9 Urticaria, unspecified; H34.8112 Central retinal vein occlusion, right eye, stable; N28.1 Cyst of kidney, acquired; R31.29 Other microscopic hematuria; F41.9 Anxiety disorder, unspecified; E66.9 Obesity, unspecified | CPT/HCPCS: 99212 ==

== ENCOUNTER 2024-07-07 09:29 | Outpatient (REF) | payer MEDICARE, SELFPAY ==
[2024-07-07 10:13] LABS: MANUAL DIFF FLAG NO
[2024-07-07 10:39] LABS: Basophils Absolute Auto 0.1 X10*3/uL (0.0-0.2); Basophils Percent Auto 1.1 % (0-2); Eosinophils Absolute Auto 0.6 X10*3/uL (0.0-0.4); Eosinophils Percent Auto 9.6 % (0-4); Hematocrit 45.8 % (42.0-52.0); Hemoglobin 15.1 g/dl (14.0-18.0); Imm Gran Abs Auto 0.02 X10*3/uL (0.00-0.03); Imm Gran Pct Auto 0.3 % (0.0-0.4); Lymphocytes Absolute Auto 1.6 X10*3/uL (1.2-4.9); Lymphocytes Percent Auto 24.3 % (20-40); Mean Corpuscular Hemoglobin 27.8 pg (27.0-33.0); Mean Corpuscular Volume 84.2 fL (80.0-98.0); Mean Platelet Volume 11.2 fL (9.4-12.4); Monocytes Absolute Auto 0.5 X10*3/uL (0.1-1.2); Monocytes Percent Auto 7.9 % (2-11); Neutrophils Absolute Auto 3.7 x10*3/uL (2.0-8.3); Neutrophils Percent Auto 56.8 % (45-73); Platelet Count 170 X10*3/uL (160-400); Red Blood Count 5.44 X10*6/uL (4.60-5.80); Red Cell Distribution Width 13.2 % (11.0-16.0); White Blood Count 6.5 X10*3/uL (4.8-10.8)
[2024-07-07 10:51] LABS: Appearance Urine Clear; Color Urine Yellow; Glucose Urine UA Negative (Negative); Leukocyte Esterase Urine Negative (Negative); Nitrite Urine Negative (Negative); Urine Blood Negative (Negative); Urine Ketones Negative (Negative); Urine Protein Negative (Neg-Trace)
[2024-07-07 11:19] LABS: Alanine Aminotransferase 29 U/L (0-40); Albumin Level 4.1 g/dL (3.5-5.0); Alkaline Phosphatase 44 U/L (39-117); Anion Gap 8 (12-20); Aspartate Amino Transferase 29 U/L (5-37); Bilirubin Total 0.8 mg/dL (0.0-1.0); Blood Urea Nitrogen 14 mg/dL (9-16); Carbon Dioxide 25 mmol/L (22-29); Chloride 110 mmol/L (96-108); Cholesterol 125 mg/dL (<200); Estimated Glomerular Filt Rate > 60; Glucose Fasting 92 mg/dL (60-99); HDL Cholesterol 33 mg/dL (>40); LDL Cholesterol Calculated 60 mg/dL (<100); Potassium 4.2 mmol/L (3.3-5.1); Sodium 139 mmol/L (135-145); Total Protein 7.2 g/dL (6.5-8.0); Triglycerides 162 mg/dL (<150)
[2024-07-07 11:33] LABS: Free T4 (Free Thyroxine) 0.91 ng/dL (0.71-1.85); Thyroid Stimulating Hormone 4.02 uIU/mL (0.32-4.0)
== END 2024-07-07 09:30 | disposition home or self-care (01) ==
LOC: HO.LAB 09:29
PROVIDERS: PCP Internal Medicine; Visit Provider Internal Medicine
DX: D64.9 Anemia, unspecified (principal); E78.00 Pure hypercholesterolemia, unspecified; R30.0 Dysuria; R79.89 Other specified abnormal findings of blood chemistry; E55.9 Vitamin D deficiency, unspecified
CPT/HCPCS: 36415; 80053; 80061; 81003; 82306; 84439; 84443; 85025

== ENCOUNTER 2024-07-14 14:07 | Outpatient (AMB) | payer MEDICARE, SELFPAY ==
--- NOTE | 2024-07-14 14:38 | MHC.PC.OV ---
Vital Signs 07/14/24 14:39 Height 5 ft 11 in Weight 230 lb 4 oz BMI 32.1 BP 126/80 Blood Pressure Location Lt brachial Position Sitting Pulse 52 Pulse Source Pulse Oximeter Pulse Oximetry (%) 94 Oxygen Delivery Method Room Air Intake Visit Reasons: hyperlipidemia, HTN, hypothyroidism Production Supervisor Off Shift Required: No Accompanied by: Self / Same As Patient Allergies Sulfa (Sulfonamide Antibiotics) [SULFA (SULFONAMIDE ANTIBIOTICS)] Allergy (Unknown, Verified 07/14/24 15:18) HIVES colonoscopy prep Allergy (Unknown, Uncoded 07/14/24 15:18) Unknown Silk tape Allergy (Unknown, Uncoded 07/14/24 15:18) rash Medication List - Last Reconciled 07/14/24 by Mike Powell MD albuterol sulfate 90 mcg/actuation (Ventolin HFA) 2 puffs inhalation Q6H PRN 30 days cetirizine 10 mg PO DAILY 90 days cholecalciferol (vitamin D3) 25 mcg PO DAILY diphenhydramine HCl (Benadryl) 25 mg PO TID PRN metoprolol tartrate 25 mg PO BID 90 days montelukast 10 mg PO BEDTIME 90 days multivitamin 1 tab PO DAILY sertraline 25 mg PO DAILY 90 days simvastatin 40 mg PO BEDTIME 90 days Tobacco use date assessed: 07/14/24 Fall risk assessment: No Falls in past year Last assessed Fall Risk: 07/14/24 Dental Screening Dental Screen Date: 07/14/24 Did you have a dental visit in the last 12 months?: Yes Did you have a dental problem in the last 6 months where you did not have access to dental care?: No Was dental information given to patient?: Patient has dentist HPI hyperlipidemia, HTN, hypothyroidism HPI Details Patient comes in today for his follow up visit States that he currently feels okay He reportedly broke out in shingles lesions on the left side of his head/scalp and face in early April 2024 and states that these lingered for a few weeks until they cleared up; he currently still has some residual but fading lesions on the left side of his head and face He denies any pain or burning sensation over the left side of his head and face; he denies any changes to his vision or hearing on the left side Patient states that he was feeling constantly tired and weak for a while and was sleeping a lot but is now starting to feel better He denies any headaches or dizziness Denies any chest pains, no increased shortness of breath but he also reports that he has been experiencing some on and off symptoms of cough and congestion that started a couple of weeks ago and thinks that he may have just caught some cold virus He denies any fever or sore throat and his dry is mostly non-productive No nausea/ vomiting, no abdominal pain No change in bowel habits noted He had his follow up labs done last week - to discuss his results [facility] Medical History Obesity (BMI 30-39.9) Microscopic hematuria Renal cyst Stable central retinal vein occlusion of right eye Hives Osteoporosis Vitamin D deficiency Benign essential hypertension Pure hypercholesterolemia Surgical History History of colonoscopy History of inguinal hernia repair Family History Father Medical history unknown Mother Hypertension Sister No problems noted. Social History Housing: House Alcohol intake: never Patient Tobacco Use Status: Never used Tobacco e-Cigarette/Vaping Use: Never Used Second Hand Smoke Exposure: No service: No Current occupational status: retired Cognitive needs: No Hearing needs: No Vision needs: Yes Questionnaire PHQ-9 Over the last 2 weeks, how often have you been bothered by any of the following problems? 1. Little interest or pleasure in doing things: not at all 2. Feeling down, depressed, or hopeless: not at all 3. Trouble falling or staying asleep, or sleeping too much: not at all 4. Feeling tired or having little energy: not at all 5. Poor appetite or overeating: not at all 6. Feeling bad about yourself - or that you are a failure or have let yourself or your family down: not at all 7. Trouble concentrating on things, such as reading the newspaper or watching television: not at all 8. Moving or speaking so slowly that other people could have noticed. Or the opposite - being so fidgety or restless that you have been moving around a lot more than usual: not at all 9. Thoughts that you would be better off or of hurting yourself in some way: not at all Total score: 0 Depression Screening Interpretation: Negative Depression Screening Done: Yes 79068 - PHQ-9 Billing: Yes Source: Developed by Drs. Froylan Ghosh, Hoda Redd, Bebeto Ch and colleagues, with an educational eduardo from [employer]. Thrive Questionnaire Date Thrive assessed: 07/14/24 I am a: Patient What is your living situation today?: I have a steady place to live Within the past 12 months, did the food you bought not last and you didn't have the money to get more?: Never true Within the past 12 months, did you worry whether your food would run out before you got money to buy more?: Never true Do you have trouble paying for medicines?: No Do you have trouble getting transportation to medical appointments?: No Do you have trouble paying your heating and electricity bill?: No Do you have trouble taking care of your child, family member or friend?: No Do you have trouble with day-to-day activities such as bathing, preparing meals, shopping, managing finances, etc.?: No Are you currently unemployed and looking for a job?: No Are you interested in more education?: No Please select the resources that you would like help with: None Currently or been in a relationship where the following occur: No concerns reported THRIVE Score: 0 AUDIT C Alcohol Use Questionnaire (AUDIT-C) 1. How often do you have a drink containing alcohol?: Never 3. How often do you have six or more drinks on one occasion?: Never Total Score: 0 Score Reviewed/Action Taken: Yes LLOYD-7 AMB Questionnaire LLOYD-7 Date LLOYD - 7 assessed: 07/14/24 Feeling nervous, anxious, or on edge: 0 = Not at all Not being able to stop or control worryin = Not at all Worrying too much about different things: 0 = Not at all Trouble relaxin = Not at all Being so restless that it is hard to sit still: 0 = Not at all Becoming easily annoyed or irritable: 0 = Not at all Feeling afraid as if something awful might happen: 0 = Not at all Total LLOYD-7 score (0-4 normal; 5-9 mild; 10-14 moderate; 15-21 severe): 0 Source: Developed by Drs. Froylan Ghosh, Hoda Redd, Bebeto Ch and colleagues, with an educational eduardo from [employer]. Review of Systems Const Denies chills, Reports fatigue (mild), Denies fever(s) and Denies headache(s) Eyes Denies change in vision ENT Denies dysphagia, Denies dizziness, Denies ear discharge, Denies otalgia, Denies headache(s), Denies hearing loss, Denies neck pain, Denies odynophagia and Denies sore throat Card Denies chest pain, Denies rapid heart rate, Denies palpitations and Denies dyspnea Resp Reports chest congestion (mild), Reports cough (on and off, mostly non-productive), Denies pain with cough, Denies dyspnea and Denies wheezing GI Denies abdominal pain, Denies constipation, Denies dysphagia, Denies heartburn, Denies diarrhea, Denies nausea, Denies odynophagia and Denies vomiting Denies difficulty urinating, Denies dysuria, Denies nocturia and Denies urinary frequency Musc Denies back pain and Denies neck pain Skin/Breast Details: recurrent hives; (+) residual and faint erythematous lesions scattered over the left side of his head and face (from his shingles outbreak back in March 2024) Neuro Denies dizziness and Denies headache(s) Psych Denies anxiety (feels well-controlled on his Rx) Endo Reports fatigue (mild) and Denies palpitations Aller/Immun Reports urticaria (on and off) and Denies wheezing Physical exam (Primary Care) Vital Signs: Last Vital Signs Pulse 52 07/14/24 14:39 BP 126/80 07/14/24 14:39 Pulse Ox 94 07/14/24 14:39 Oxygen Delivery Method Room Air 07/14/24 14:39 BMI result Body Mass Index 32.1 Tobacco/Smoking Status: Tobacco use Status Tobacco use date assessed 07/14/24 07/14/24 14:40 Patient Tobacco Use Status Never used Tobacco 07/14/24 14:40 e-Cigarette/Vaping Use Never Used 07/14/24 14:40 PHQ-9: PHQ-9 Score PHQ-9: Total score 0 07/14/24 15:20 Depression Screening Interpretation: Negative Thrive Assessment: Date of Thrive Assessment Date Thrive assessed 07/14/24 07/14/24 14:40 Currently or been in a relationship where the following occur: No concerns reported Const General: no acute distress and alert HENMT Ears: TM's normal bilaterally and EAC's normal Throat: Yes posterior oropharynx normal and Yes tonsils normal (no TP congestion noted) Neck Neck: Yes supple and No lymphadenopathy Thyroid: Thyroid normal Resp Auscultation: clear to auscultation bilaterally, no crackles, no rales and no wheezes Cardio Rate: regular rate Rhythm: regular rhythm Heart sounds: no murmurs GI Palpation (GI): Soft to palpation and nontender Auscultation: normal bowel sounds General: Yes no CVA tenderness Back/Spine/Pelvis Back: no CVA tenderness Thoracic/Lumbar Spine: No lumbar spinal tenderness Skin Other: (+) few scattered erythematous small urticarial lesions Extrem General: Yes no clubbing, cyanosis or edema Results Reviewed Results Reviewed: Laboratory Tests 07/07/24 07/07/24 10:04 10:12 WBC 6.5 Hgb 15.1 Hct 45.8 Plt Count 170 Sodium 139 Potassium 4.2 Creatinine 0.83 Estimated GFR > 60 Fasting Glucose 92 Calcium 9.0 AST 29 ALT 29 Triglycerides 162 H Cholesterol 125 LDL Cholesterol, Calc 60 HDL Cholesterol 33 L 25-OH Vitamin D Total 42.0 TSH 4.02 H Free T4 0.91 Ur Specific [place] 1.020 Urine Protein Negative Urine Glucose (UA) Negative Urine Blood Negative Urine Nitrite Negative Ur Leukocyte Esterase Negative Coding Level of Care Code Est Pt Level 4 (40573) Diagnoses Pure hypercholesterolemia E78.00 Benign essential hypertension I10 Age related osteoporosis, unspecified pathological fracture presence M81.0 Osteoporosis type: age-related Presence of current pathological fracture: unspecified Vitamin D deficiency E55.9 Elevated TSH R79.89 Hives L50.9 Herpes zoster without complication B02.9 Herpes zoster complications: without complications Stable central retinal vein occlusion of right eye H34.8112 Renal cyst N28.1 Microscopic hematuria R31.29 Respiratory tract infection J98.8 Anxiety F41.9 Obesity (BMI 30-39.9) E66.9 Additional Codes PHQ-9 - 93988 - PHQ-9 Billing: Yes ([id number]) Assessment & Plan Assessment & Plan (1) Pure hypercholesterolemia: Code(s): E78.00 - Pure hypercholesterolemia, unspecified Category: Medical Plan: Results of his labs done last week reviewed and discussed with patient Reinforced low cholesterol diet Continue Simvastatin 40 mg QD Will recheck his labs and fasting lipids in 4 months for follow up (2) Benign essential hypertension: Code(s): I10 - Essential (primary) hypertension Category: Medical Plan: Reinforced low sodium diet -?goal is systolic BP of at least 120 to 130 mm or less Continue Metoprolol 25 mg BID (3) Osteoporosis: Code(s): M81.0 - Age-related osteoporosis without current pathological fracture Category: Medical Qualifiers: Osteoporosis type: age-related Presence of current pathological fracture: unspecified Qualified Code(s): M81.0 - Age-related osteoporosis without current pathological fracture Plan: His most recent repeat BMD done on 11/25/2023 revealed (+) 8.7% increase in his BMD in the AP spine; his left femur BMD is mostly unchanged from his previous BMD on 01/03/2021 - will continue to monitor his BMD regularly every 2 to 3 years Follow-up with endocrinology as scheduled (4) Vitamin D deficiency: Code(s): E55.9 - Vitamin D deficiency, unspecified Category: Medical Plan: Continue Vitamin D3 1000 units QD (5) Elevated TSH: Code(s): R79.89 - Other specified abnormal findings of blood chemistry Category: Medical Plan: His serum TSH again remains slightly elevated and his free T4 is low normal on his recent labs Patient is currently still clinically euthyroid but he has been advised that he may be getting to a point where he will require thyroid hormone Rx supplement soon (subclinical hypothyroidism) Will continue to monitor his TFTs closely for now (6) Hives: Code(s): L50.9 - Urticaria, unspecified Category: Medical Plan: States that he normally starts getting these around the same time of the year, in the late summer/early fall Continue Cetirizine 10 mg QD PRN and Montelukast 10 mg QD Have advised him of the option of referring him for allergy testing and immunotherapy for his allergies He feels like his allergies are well-controlled at this time and will consider allergy testing if his symptoms get worse (7) Shingles: Code(s): B02.9 - Zoster without complications Category: Medical Qualifiers: Herpes zoster complications: without complications Qualified Code(s): B02.9 - Zoster without complications Plan: Resolved - his shingles lesions are mostly over the left side of his head/scalp and face and he reports no apparently ocular or otic involvement Have advised patient that he can wait for a few months before getting his shingles vaccine, which he should still get a few months from now as shingles can recur (8) Stable central retinal vein occlusion of right eye: Code(s): H34.8112 - Central retinal vein occlusion, right eye, stable Category: Medical Plan: He has mild central retinal vein occlusion in the right eye as well as retinal hemorrhages and mild vessel tortuosity and an epiretinal membrane on exam by retinal specialist back in 2019 - was advised to optimize control of his BP, blood sugar and cholesterol to prevent disease progression Follow-up with retina specialist and Ophthalmology as scheduled for continuing surveillance and management (9) Renal cyst: Code(s): N28.1 - Cyst of kidney, acquired Category: Medical Plan: Repeat renal US done back in 07/2019 showed (+) perirenal cysts bilaterally that are mostly unchanged from previous Renal US done in September 2021 revealed (+) left renal pelviectasis without radha hydronephrosis; benign-appearing bilateral renal and peripelvic renal cysts - NO imaging follow-up is recommended further (10) Microscopic hematuria: Code(s): R31.29 - Other microscopic hematuria Category: Medical Plan: Benign - urology workups have all been negative in the past except for renal cysts Follow up with urology as scheduled (11) Respiratory tract infection: Code(s): J98.8 - Other specified respiratory disorders Category: Medical Plan: Will start him empirically on Azithromycin QD x 5 days (12) Anxiety: Code(s): F41.9 - Anxiety disorder, unspecified Category: Medical Plan: Continue Sertraline 25 mg QD (13) Obesity (BMI 30-39.9): Code(s): E66.9 - Obesity, unspecified Category: Medical Plan: Reinforced diet/exercise as tolerated/ lose weight Plan Follow up in 4 months Orders: Orders Complete Blood Count Auto Diff 4 Months D64.9 - Anemia, unspecified Comprehensive [place]. Panel Fast 4 Months E78.00 - Pure hypercholesterolemia, unspecified UA CC w/rflx Micro + Cult 4 Months R30.0 - Dysuria Lipid Panel 4 Months E78.00 - Pure hypercholesterolemia, unspecified TSH reflex Free T4 4 Months E78.00 - Pure hypercholesterolemia, unspecified Vitamin D 25-OH Total 4 Months E55.9 - Vitamin D deficiency, unspecified Medications: New azithromycin take 500 mg today (day 1), then 250 mg for 4 days (days 2-5) PO 6 tabs 0RF
[2024-07-14 14:39] VITALS: BP 126/80; PULSE 52; O2SAT 94; BMI 32.1
--- OUTSIDE RECORDS SUMMARY | 2024-07-14 16:27 | XMS_ITS | Patient Health Record ---
Author Organization [facility] Address [address] [place] [address] Care Team Providers Care Network Coordinator Name Role Phone Esequiel Powell MDneth Primary Care Provider Froylan Kim Unavailable [phone] ALLERGIES Allergen (clinical drug ingredient) Drug/Non Drug Allergy documented on EMR Reaction Allergy Type Onset Date Status sulfacetamide Sulfacetamide Sodium hives Drug Allergy Active REASON FOR REFERRAL No Information MEDICATIONS Medication SIG (Take, Route, Frequency, Duration) Notes Start Date End Date Status Multi Vitamin Mens A ctive Cod Liver Oil 4000-200 UNIT as directed Orally Active Probiotic - as directed Orally Active Simvastatin 40 MG 1 tablet in the even ing Orally Once a day for 30 day(s) Active Vitamin D-3 25 MCG (1000 UT) 1 capsule Orally Once a day for 30 day(s) Active Ashwagandha 500 MG as directed Orally Active Aspirin 81 81 MG 1 tablet Orally Once a day for 30 day(s) Not-Taking Sertraline HCl 25 MG 1 tablet Orally Onc e a day for 30 day(s) Active Metoprolol Succinate 25 MG 1 capsule Orally Once a day for 30 day(s) Active IMMUNIZATIONS Vaccine Route Administration Date Status Comme nts Influenza Unknown 05/06/2023 Administered Influenza Unknown 01/05/2019 Refused SOCIAL HISTORY Sex Assigned At : Social History Observation Description Sex Assigned At Unknown PROBLEMS Problem Type ICD Code Onset Dates Problem Status W/U Status Risk SNOMED Code Notes Problem Encounter for screening for malignant neoplasm of colon (Z12.11) Active confirmed 130632383 Problem History of adenomatous polyp of colon (Z86.010) Active confirmed 890330770 Problem Long-term use of aspirin therapy (Z79.82) Active confirmed 447478296 VITAL SIGNS Temperature 96.8 degrees Fahrenheit 04/30/2024 Blood pressure diastolic 00 mm Hg 04/30/2024 Height 72 in 04/30/2024 Blood pressure systolic 000 mm Hg 04/30/2024 Weight 236 lb 6 oz lbs 04/30/2024 BMI 32.05 kg/m2 04/30/2024 Encounters Encounter Location Date Provider Diagnosis [facility] [address] [place] [address] 04/30/2024 Froylan Stokes Encounter for screening for malignant neoplasm of colon Z12.11 and History of adenomatous polyp of colon Z86.010 ASSESSMENTS Encounter Date Diagnosis Assessment Notes Treatment Notes Treatment Clinical Notes 04/30/2024 Encounter for screening for malignant neoplasm of colon (ICD-10 - Z12.11) 04/30/2024 History of adenomatous polyp of colon (ICD-10 - Z86.010) PLAN OF TREATMENT Future Test Test Name Order Date COLONOSCOPY 01/05/2019 COLONOSCOPY 04/30/2024 Next Appt Details Provider Name:Froylan Stokes , 08/25/2024 10:40:00 AM, [address] [facility] , [place], [place], [phone], Insurance Providers Payer Name Payer Address Payer Phone Subscriber Number Group Number Insured Name Patient Relationship to Insured Coverage Start Date Coverage End Date MEDICARE OF [place] [address] [place] [address] [id number] SAUNDRA DUNHAM Self - patient is the insured [employer] ATT[employer] CLAIMS [address] [place] [address] [id number] SAUNDRA DUNHAM Self - patient is the insured MEDICAL (GENERAL) HISTORY Medical History History ICD Code Denies AK,DM,CVA,Lung disease,renal dise ase HTN Hyperlipidemia Screening colonoscopy in Jan with the removal of a small tubular adenoma, and the finding of some mild to moderate diverticulosis Colonoscopy in 01/2014 small tubular awilda omas removed Colonoscopy in 02/2019-small tubular adenoma, sessile serrated polyp, and a hyperplastic polyp Anxiety Surgical History Surgery Date(Month/Year) Broken hip Left inguinal hernia repair November
--- OUTSIDE RECORDS SUMMARY | 2024-07-14 16:27 | XMS_ITS ---
Author Organization [facility] Address [address] [place] [address] Care Team Providers Care System Specialist Name Role Phone Wisam Powell MDh Primary Care Provider Froylan Kim [phone] ALLERGIES Allergen (clinical drug ingredient) Drug/Non Drug Allergy documented on EMR Reaction Allergy Type Onset Date Status sulfacetamide Sulfacetamide Sodium hives Drug Allergy Active REASON FOR VISIT Patient presents today for a screening colonoscopy MEDICATIONS Medication SIG (Take, Route, Frequency, Duration) Notes Start Date End Date Status Aspirin 81 81 MG 1 tablet Orally Once a day for 30 day(s) Not-Taking Sertraline HCl 25 MG 1 tablet Orally Onc e a day for 30 day(s) Active Metoprolol Succinate 25 MG 1 capsule Orally Once a day for 30 day(s) Active Multi Vitamin Mens A ctive Cod Liver Oil 4000-200 UNIT as directed Orally Active Simvastatin 40 MG 1 tablet in the even ing Orally Once a day for 30 day(s) Active Vitamin D-3 25 MCG (1000 UT) 1 capsule Orally Once a day for 30 day(s) Active Ashwagandha 500 MG as directed Orally Active Probiotic - as directed Orally Active VITAL SIGNS BMI 32.05 kg/m2 04/30/2024 Blood pressure systolic 000 mm Hg 04/30/20 24 Blood pressure diastolic 00 mm Hg 024 Height 72 in 04/30/2024 Temperature 96.8 degrees Fahrenheit 04/30/20 24 Weight 236 lb 6 oz lbs 04/30/2024 Encounters Encounter Location Date Provider Diagnosis [facility] [address] [place] [address] [place] [address] 04/30/2024 Froylan Stokes Encounter for screening for malignant neoplasm of colon Z12.11 and History of adenomatous polyp of colon Z86.010 ASSESSMENTS Encounter Date Diagnosis Assessment Notes Treatment Notes Treatment Clinical Notes 04/30/2024 Encounter for screening for malignant neoplasm of colon (ICD-10 - Z12.11) 04/30/2024 History of adenomatous polyp of colon (ICD-10 - Z86.010) PLAN OF TREATMENT Future Test Test Name Order Date COLONOSCOPY 04/30/2024 Next Appt Details Follow Up: prn, Reason: Provider Name:Froylan Stokes , 08/25/2024 10:40:00 AM, [address] [place] [address] , [place], [place], [phone], Progress Notes * Examination Category Sub-Category Detail Notes General Examination GENERAL APPEARANCE: pleasant , well nourished, well developed, in no acute distress EYES: sclera non-icteric NECK/THYROID: no cervical lymphade nopathy, neck supple HEART: S1, S2 normal LUNGS: clear to auscultatio n bilaterally ABDOMEN: normal bowel sounds, no guarding or rigidity, no hepatosplenomegaly, no masses palpable, soft, nontender, nondistended. NEUROLOGIC: alert and oriented SKIN: nonjaundiced, no spi cy angiomata. EXTREMITIES: no edema ORAL CAVITY: mucosa moist
== END 2024-07-14 15:39 | disposition home or self-care (01) ==
PROVIDERS: PCP Internal Medicine; Visit Provider Internal Medicine
DX: E78.00 Pure hypercholesterolemia, unspecified (principal); I10 Essential (primary) hypertension; M81.0 Age-related osteoporosis without current pathological fracture; E55.9 Vitamin D deficiency, unspecified; R79.89 Other specified abnormal findings of blood chemistry; L50.9 Urticaria, unspecified; B02.9 Zoster without complications; H34.8112 Central retinal vein occlusion, right eye, stable; N28.1 Cyst of kidney, acquired; R31.29 Other microscopic hematuria; J98.8 Other specified respiratory disorders; F41.9 Anxiety disorder, unspecified; E66.9 Obesity, unspecified

== ENCOUNTER → 2024-07-14 14:07 | Outpatient (BNVA) | payer MEDICARE, SELFPAY | PROVIDERS: PCP Internal Medicine; Visit Provider Internal Medicine | DX: E78.00 Pure hypercholesterolemia, unspecified (principal); I10 Essential (primary) hypertension; M81.0 Age-related osteoporosis without current pathological fracture; E55.9 Vitamin D deficiency, unspecified; R79.89 Other specified abnormal findings of blood chemistry; L50.9 Urticaria, unspecified; B02.9 Zoster without complications; H34.8112 Central retinal vein occlusion, right eye, stable; N28.1 Cyst of kidney, acquired; R31.29 Other microscopic hematuria; J98.8 Other specified respiratory disorders; F41.9 Anxiety disorder, unspecified; E66.9 Obesity, unspecified | CPT/HCPCS: 96127; 99212 ==

== ENCOUNTER 2024-08-05 11:29 | Outpatient (REF) | payer MEDICARE, SELFPAY ==
--- NOTE | ~2024-08-05 | XR_ITS ---
EXAMINATION: XR CHEST CLINICAL INFORMATION: J98.8 - Other specified respiratory disorders COMPARISON: 07/02/2023. 06/19/2023. TECHNIQUE: 2 views of the chest were obtained. FINDINGS: The cardiac, hilar, and mediastinal contours are normal. Lungs are mildly hyperaerated, with increased thoracic AP diameter, however clear bilaterally. There is no pneumothorax or pleural effusion. There is no focal osseous or soft tissue abnormality. Mild scoliosis and spinal degenerative changes with mildly exaggerated kyphosis. XR/XR chest 2V IMPRESSION: No active pulmonary disease. Electronically signed by: Agusto Feng MD 08/05/2024 12:00 PM [facility]
--- OUTSIDE RECORDS SUMMARY | 2024-08-05 12:09 | XMS_ITS ---
Author Organization [facility] Address [address] [place] [phone] Care Team Providers Care Human Resources Clerk Name Role Phone Wisam Powell MDh Primary Care Provider Froylan Kim [phone] ALLERGIES Allergen (clinical drug ingredient) Drug/Non Drug [...] 04/30/2024 Encounters Encounter Location Date Provider Diagnosis [facility] [address] [place] [address] [place] [address] 04/30/2024 Froylan Stokes Encounter for screening for [...] Provider Name:Froylan Stokes , 08/25/2024 10:40:00 AM, [address] [place] [address] , [place], [place], [phone], Progress Notes * Examination Category Sub-Category Detail [...]
--- OUTSIDE RECORDS SUMMARY | 2024-08-05 12:09 | XMS_ITS | Patient Health Record ---
Author Organization [facility] Address [address] [place] [address] Care Team Providers Care Diaper Folder Name Role Phone Esequiel Powell MDneth Primary Care Provider Froylan Kim Unavailable [phone] ALLERGIES Allergen (clinical drug ingredient) Drug/Non Drug [...] malignant neoplasm of colon (Z12.11) Active confirmed 597581287 Problem History of adenomatous polyp of colon (Z86.010) Active confirmed 382873006 Problem Long-term use of aspirin therapy (Z79.82) Active confirmed [id number] VITAL SIGNS Temperature 96.8 degrees Fahrenheit 04/30/2024 Blood pressure diastolic 00 mm Hg 04/30/2024 Height 72 in 04/30/2024 Blood pressure systolic 000 mm Hg 04/30/2024 Weight 236 lb 6 oz lbs 04/30/2024 BMI 32.05 kg/m2 04/30/2024 Encounters Encounter Location Date Provider Diagnosis [facility] [address] [place] [address] 04/30/2024 Froylan Stokes Encounter for screening for [...] Name:Froylan Stokes , 08/25/2024 10:40:00 AM, [address] [facility] , [place], [place], [phone], Insurance Providers Payer Name Payer Address Payer Phone Subscriber Number Group Number Insured Name Patient Relationship to Insured Coverage Start Date Coverage End Date MEDICARE OF [place] [address] [place] [address] [id number] SAUNDRA DUNHAM Self - patient is the insured [employer] CLAIMS [address] [place] [address] [id number] SAUNDRA DUNHAM Self - patient is the insured MEDICAL (GENERAL) HISTORY Medical History History ICD Code Denies AR,DM,CVA,Lung disease,renal dise ase HTN Hyperlipidemia Screening colonoscopy [...]
== END 2024-08-05 11:30 | disposition home or self-care (01) ==
LOC: HO.XRAY 11:29
PROVIDERS: PCP Internal Medicine; Visit Provider Internal Medicine
DX: J98.8 Other specified respiratory disorders (principal); R06.00 Dyspnea, unspecified
CPT/HCPCS: 71046

== ENCOUNTER → 2024-08-05 11:35 | Outpatient (BNV) | payer MEDICARE, SELFPAY | PROVIDERS: PCP Internal Medicine; Visit Provider Radiology Diagnostic Radiology | DX: J98.8 Other specified respiratory disorders (principal) | CPT/HCPCS: 71046 ==

== ENCOUNTER 2024-08-25 08:16 | Day surgery (SDC) | payer MEDICARE, SELFPAY ==
[2024-08-23 13:23] VITALS: BMI 32.1
--- NOTE | 2024-08-24 12:43 | P.CONAN_ITS ---
Documented by User: Dyana Dunham NP 08/24/24 12:43 HPI - Anesthesia Eval Consult details Narrative: 74yo M for Colonoscopy PMFSH Active Problems Active Problems: All Active Problems Dyspnea (Acute) Respiratory tract infection (Acute) Shingles (Acute) Pneumonia (Acute) Anxiety (Acute) Lumbar spine strain (Acute) Pneumonia due to COVID-19 virus (Acute) Keratotic lesion (Acute) Rib pain on right side (Acute) Elevated TSH (Acute) Annual physical exam (Acute) Overweight (BMI 25.0-29.9) (Acute) Hives (Acute) Obesity (BMI 30-39.9) (Acute) Microscopic hematuria (Acute) Renal cyst (Acute) Stable central retinal vein occlusion of right eye (Acute) Osteoporosis (Acute) Vitamin D deficiency (Acute) Benign essential hypertension (Acute) Pure hypercholesterolemia (Acute) Past Medical History Medical History Obesity (BMI 30-39.9) Microscopic hematuria Renal cyst Stable central retinal vein occlusion of right eye Osteoporosis Vitamin D deficiency Benign essential hypertension Pure hypercholesterolemia Family History Family History Father Medical history unknown Mother Hypertension Sister No problems noted. Surgical History Surgical History History of hip surgery History of colonoscopy History of inguinal hernia repair Social History Social History Housing: House Alcohol intake: never Patient Tobacco Use Status: Never used Tobacco e-Cigarette/Vaping Use: Never Used Second Hand Smoke Exposure: No Use of substances other than those prescribed or required for medical reasons: No Have you been hit, kicked, punched, or otherwise hurt by someone within the past year? If so, by whom?: No Are you DNR?: No Advance Directives: No Advance Directives Information Provided: Yes Recently lost weight without trying: No service: No Current occupational status: retired Cognitive needs: No Hearing needs: No Vision needs: Yes Meds Allergies Allergy/AdvReac Type Severity Reaction Status Date / Time Sulfa (Sulfonamide Allergy Intermediate HIVES Verified 08/23/24 13:22 Antibiotics) [SULFA (SULFONAMIDE ANTIBIOTICS)] Silk tape Allergy Intermediate rash Uncoded 08/23/24 13:22 Home Medications ?Medication ?Instructions ?Recorded ?Confirmed ?Last Taken ?Type cholecalciferol (vitamin D3) 25 25 mcg PO DAILY 05/25/20 08/23/24 Unknown History mcg (1,000 unit) capsule multivitamin 1 tab PO DAILY 05/25/20 08/23/24 Unknown History diphenhydramine HCl 25 mg capsule 25 mg PO TID PRN itching 03/29/22 07/14/24 Unknown History (Benadryl) Exam Height,Weight and Vital Signs: Height 6 ft Weight 107.218 kg Assessment and Plan Assessment Anesthesia Assessment: Chart Reviewed Documented by User: Loli Sales MD 08/25/24 09:02 [facility] Past Medical History Medical History Obesity (BMI 30-39.9) Microscopic hematuria Renal cyst Stable central retinal vein occlusion of right eye Osteoporosis Vitamin D deficiency Benign essential hypertension Pure hypercholesterolemia Family History Family History Father Medical history unknown Mother Hypertension Sister No problems noted. Family history of problems with anesthesia: No Surgical History Surgical History History of hip surgery History of colonoscopy History of inguinal hernia repair History of Problems with Anesthesia: No Social History Social History Housing: House Alcohol intake: never Patient Tobacco Use Status: Never used Tobacco e-Cigarette/Vaping Use: Never Used Second Hand Smoke Exposure: No Use of substances other than those prescribed or required for medical reasons: No Have you been hit, kicked, punched, or otherwise hurt by someone within the past year? If so, by whom?: No Are you DNR?: No Advance Directives: No Advance Directives Information Provided: Yes Recently lost weight without trying: No service: No Current occupational status: retired Cognitive needs: No Hearing needs: No Vision needs: Yes Meds Allergies Allergy/AdvReac Type Severity Reaction Status Date / Time Sulfa (Sulfonamide Allergy Intermediate HIVES Verified 08/23/24 13:22 Antibiotics) [SULFA (SULFONAMIDE ANTIBIOTICS)] Silk tape Allergy Intermediate rash Uncoded 08/23/24 13:22 Home Medications ?Medication ?Instructions ?Recorded ?Confirmed ?Last Taken ?Type cholecalciferol (vitamin D3) 25 25 mcg PO DAILY 05/25/20 08/23/24 Unknown History mcg (1,000 unit) capsule multivitamin 1 tab PO DAILY 05/25/20 08/23/24 Unknown History diphenhydramine HCl 25 mg capsule 25 mg PO TID PRN itching 03/29/22 07/14/24 Unknown History (Benadryl) Exam Airway Mallampati Class: II TM Dist: >3cm Heart: rrr Lungs: cta Assessment and Plan Assessment Anesthesia Assessment: Anesthesia Plan Discussed Final Anesthetic Review Family History of Problems with Anesthesia: No History of Problems with Anesthesia: No NPO: Yes ASA Class: II Final Preanesthetic Review: No Changes in Pt Med Stat, Meds/Allgs Chart Reviewed, Consent Obtained/Reviewed and Anes Risks/Benef Reviewed Patient Risk: Low Procedure Risk: Low Anesthetic Plan Anesthetic Plan: MAC: Disposition: Standard PACU
[2024-08-25 08:51] VITALS: BP 129/75; PULSE 63; RESP 16; TEMP 36.8; O2SAT 96; BMI 32.4
[2024-08-25] MEDS: Lactated Ringers 1,000 ML 100 ML IVCONT (08:57)
--- NOTE | 2024-08-25 10:44 | PM.OP ---
Brief Operative Note Date of Service: 08/25/24 Pre-op diagnosis: Screening Post-op diagnosis: other (Polyp) Procedure: Colonoscopy to the cecum and TI with hot snare polypectomy x 1 Surgeon: Froylan Stokes MD Anesthesia: MAC Was an Yacht Master used for this Procedure?: No Estimated blood loss (mL): 0 Pathology: other (A. Cecal polyp) Condition: stable Disposition: PACU
[2024-08-25 10:45] VITALS: BP 125/84; PULSE 56; RESP 18; TEMP 36.6; O2SAT 95
[2024-08-25 11:00] VITALS: BP 122/86; PULSE 51; RESP 18; TEMP 36.1; O2SAT 96
--- NOTE | 2024-08-25 11:16 | OP_ITS ---
DATE OF SERVICE: 08/25/2024 SURGEON: Froylan Stokes MD INDICATIONS: The patient presents for evaluation of personal history of tubular adenoma of the colon and sessile serrated polyp of the colon, and need for colorectal cancer screening. Full consent has been obtained from him for this, including risks of bleeding and perforation. PREOPERATIVE DIAGNOSIS: POSTOPERATIVE DIAGNOSIS: PROCEDURE PERFORMED: Colonoscopy to the cecum and terminal ileum with hot snare polypectomy x1. ESTIMATED BLOOD LOSS: COMPLICATIONS: ANESTHESIA: Monitored anesthesia care. ASSISTANTS: SPECIMENS: PREOPERATIVE DIAGNOSES: Colorectal cancer screening and personal history of colon polyps. POSTOPERATIVE DIAGNOSES: Colorectal cancer screening and personal history of colon polyps, colon polyp, diverticulosis, and internal hemorrhoids. DESCRIPTION OF PROCEDURE: The patient was placed in left lateral decubitus position. The digital rectal exam revealed no abnormalities, but he did have a tight sphincter which limited the exam. The Olympus video pediatric colonoscope was entered into the rectum and advanced easily to the cecum. Once in the cecum, I did identify cecal pouch with appendiceal orifice and a normal-appearing ileocecal valve. The terminal ileum was cannulated and appeared normal. Scope was withdrawn back in the colon. The entire cecum and ileocecal valve were well visualized, including the appendiceal orifice, which appeared normal. In the cecum was an approximately 12 mm polyp, which was removed by hot snare polypectomy. The polypectomy site appeared clean, without any sign of residual polyp nor bleeding. I used a retrieval net to grab the polyp and then we brought it out of the patient. Up until about 50 cm, I was able to visualize the colon very well with the polyp in the retrieval net. However, at that point, I had to bring the scope out of the patient and removed the polyp and the net. The scope was readvanced back into the rectum and to the 50 cm natividad. At that point, the scope was slowly withdrawn assessing all mucosal surfaces carefully. Preparation was excellent throughout the colon. I did not visualize any other polyps, colitis, nor angiodysplasia. There was a mild amount of sigmoid diverticulosis. In the rectum, scope was retroflexed visualizing internal hemorrhoids, but no other pathology. The rectal mucosa appeared normal. The scope was straightened and withdrawn from the patient. He tolerated the procedure well and was returned to recovery area in stable condition. IMPRESSION: 1. Colon polyp. 2. Diverticulosis. 3. Internal hemorrhoids. PLAN: Results of the pathology will be checked. I would recommend a repeat colonoscopy in 5 years for further screening and surveillance. He was advised not to use any aspirin or NSAIDs for 1 week. He will otherwise see me on a p.r.n. basis. This has been discussed with his . MD CRISTINA Hawkins/GO / [id number]
== END 2024-08-25 12:15 | disposition home or self-care (01) ==
PROVIDERS: PCP Internal Medicine; Visit Provider Internal Medicine
PROC: 0DJD8ZZ Inspection of Lower Intestinal Tract, Via Natural or Artificial Opening Endoscopic (ICD-10-PCS; CPT 45378; principal; 2024-08-25 09:50)
DX: Z12.11 Encounter for screening for malignant neoplasm of colon (principal); Z86.0101 Personal history of adenomatous and serrated colon polyps; D12.0 Benign neoplasm of cecum; K57.30 Diverticulosis of large intestine without perforation or abscess without bleeding; K64.8 Other hemorrhoids; I10 Essential (primary) hypertension; E78.5 Hyperlipidemia, unspecified; Z79.899 Other long term (current) drug therapy; Z98.890 Other specified postprocedural states
CPT/HCPCS: 45385; 88305; J2003; J2704

== ENCOUNTER 2024-11-05 09:49 | Outpatient (REF) | payer MEDICARE, SELFPAY ==
[2024-11-05 10:15] LABS: MANUAL DIFF FLAG NO
[2024-11-05 10:50] LABS: Basophils Absolute Auto 0.1 X10*3/uL (0.0-0.2); Basophils Percent Auto 0.8 % (0-2); Eosinophils Absolute Auto 0.5 X10*3/uL (0.0-0.4); Eosinophils Percent Auto 7.5 % (0-4); Hematocrit 44.8 % (42.0-52.0); Hemoglobin 14.7 g/dl (14.0-18.0); Imm Gran Abs Auto 0.02 X10*3/uL (0.00-0.03); Imm Gran Pct Auto 0.3 % (0.0-0.4); Lymphocytes Absolute Auto 1.6 X10*3/uL (1.2-4.9); Lymphocytes Percent Auto 25.7 % (20-40); Mean Corpuscular HGB Conc 32.8 g/dl (31.0-36.0); Mean Corpuscular Hemoglobin 27.7 pg (27.0-33.0); Mean Corpuscular Volume 84.4 fL (80.0-98.0); Mean Platelet Volume 11.3 fL (9.4-12.4); Monocytes Absolute Auto 0.5 X10*3/uL (0.1-1.2); Monocytes Percent Auto 8.8 % (2-11); Neutrophils Absolute Auto 3.4 x10*3/uL (2.0-8.3); Neutrophils Percent Auto 56.9 % (45-73); Platelet Count 168 X10*3/uL (160-400); Red Blood Count 5.31 X10*6/uL (4.60-5.80); Red Cell Distribution Width 13.2 % (11.0-16.0)
[2024-11-05 11:29] LABS: Alanine Aminotransferase 30 U/L (0-40); Albumin Level 4.1 g/dL (3.5-5.0); Alkaline Phosphatase 45 U/L (39-117); Anion Gap 10 (12-20); Aspartate Amino Transferase 31 U/L (5-37); Bilirubin Total 0.8 mg/dL (0.0-1.0); Blood Urea Nitrogen 16 mg/dL (9-16); Calcium 9.4 mg/dL (8.4-10.2); Carbon Dioxide 28 mmol/L (22-29); Chloride 106 mmol/L (96-108); Cholesterol 134 mg/dL (<200); Estimated Glomerular Filt Rate > 60; Glucose Fasting 92 mg/dL (60-99); HDL Cholesterol 35 mg/dL (>40); LDL Cholesterol Calculated 70 mg/dL (<100); Potassium 4.4 mmol/L (3.3-5.1); Sodium 140 mmol/L (135-145); Total Protein 7.2 g/dL (6.5-8.0); Triglycerides 149 mg/dL (<150)
[2024-11-05 11:32] LABS: TSH reflex Free T4 5.42 uIU/mL (0.32-4.0); Vitamin D 25-OH Total 49.7 ng/mL (>30)
[2024-11-05 12:00] LABS: Appearance Urine Clear; Color Urine Yellow; Glucose Urine UA Negative (Negative); Leukocyte Esterase Urine Negative (Negative); Nitrite Urine Negative (Negative); PH 6.5 (5.0-9.0); Specific Gravity - Urine 1.015 (1.005-1.025); Urine Blood Negative (Negative); Urine Ketones Negative (Negative); Urine Protein Negative (Neg-Trace)
[2024-11-05 12:02] LABS: Free T4 (Free Thyroxine) 0.83 ng/dL (0.71-1.85)
== END 2024-11-05 09:50 | disposition home or self-care (01) ==
LOC: HO.LAB 09:49
PROVIDERS: PCP Internal Medicine; Visit Provider Internal Medicine
DX: D64.9 Anemia, unspecified (principal); E78.00 Pure hypercholesterolemia, unspecified; R30.0 Dysuria; E55.9 Vitamin D deficiency, unspecified
CPT/HCPCS: 36415; 80053; 80061; 81003; 82306; 84439; 84443; 85025

== ENCOUNTER 2024-11-12 13:36 | Outpatient (AMB) | payer MEDICARE, SELFPAY ==
[2024-11-12 13:38] VITALS: BP 128/84; PULSE 52; TEMP 36.2; O2SAT 96; BMI 32.7
--- NOTE | 2024-11-12 13:38 | MHC.PC.OV ---
Vital Signs 11/12/24 13:38 Height 5 ft 11 in Weight 234 lb 2 oz BMI 32.7 BP 128/84 Blood Pressure Location Lt brachial Position Sitting Pulse 52 Pulse Source Pulse Oximeter Temp 97.1 F Temp Source Temporal Artery Scan Pulse Oximetry (%) 96 Oxygen Delivery Method Room Air Intake Visit Reasons: 4 month f/u Allergies Sulfa (Sulfonamide Antibiotics) [SULFA (SULFONAMIDE ANTIBIOTICS)] Allergy (Intermediate, Verified 11/12/24 13:50) HIVES Silk tape Allergy (Intermediate, Uncoded 11/12/24 13:50) rash Medication List - Last Reconciled 11/12/24 by Mike Powell MD albuterol sulfate 90 mcg/actuation (Ventolin HFA) 2 puffs inhalation Q6H PRN 30 days cetirizine 10 mg PO DAILY 90 days cholecalciferol (vitamin D3) 25 mcg PO DAILY diphenhydramine HCl (Benadryl) 25 mg PO TID PRN metoprolol tartrate 25 mg PO BID 90 days montelukast 10 mg PO BEDTIME 90 days multivitamin 1 tab PO DAILY sertraline 25 mg PO DAILY 90 days simvastatin 40 mg PO BEDTIME 90 days Tobacco use date assessed: 11/12/24 Fall risk assessment: No Falls in past year Last assessed Fall Risk: 11/12/24 Dental Screening Dental Screen Date: 07/14/24 Did you have a dental visit in the last 12 months?: Yes Did you have a dental problem in the last 6 months where you did not have access to dental care?: No Was dental information given to patient?: Patient has dentist HPI 4 month f/u HPI Details Patient comes in today for his follow up visit States that he has been dealing with increased allergy symptoms lately He has been taking his allergy medications regularly, which he states help but he's had to use his Albuterol inhalers lately when his allergy symptoms get worse States that he feels okay otherwise He denies any headaches or dizziness Denies any chest pains, no increased SOB No nausea/vomiting, no abdominal pain No change in bowel habits noted He had his follow up labs done last week - to discuss his results He has his repeat colonoscopy done a couple of months ago on 08/25/[address] Stokes - was told that he had a polyps removed that was a tubular adenoma on pathology and he was recommended for a repeat colonoscopy again in 5 yrs [facility] Medical History Obesity (BMI 30-39.9) Microscopic hematuria Renal cyst Stable central retinal vein occlusion of right eye Osteoporosis Vitamin D deficiency Benign essential hypertension Pure hypercholesterolemia Surgical History (Updated 11/12/24 @ 14:53 by Mike Powell MD) History of hip surgery History of colonoscopy History of inguinal hernia repair Family History Father Medical history unknown Mother Hypertension Sister No problems noted. Social History Housing: House Alcohol intake: never Patient Tobacco Use Status: Never used Tobacco e-Cigarette/Vaping Use: Never Used Second Hand Smoke Exposure: No service: No Current occupational status: retired Cognitive needs: No Hearing needs: No Vision needs: Yes Questionnaire PHQ-9 Over the last 2 weeks, how often have you been bothered by any of the following problems? 1. Little interest or pleasure in doing things: not at all 2. Feeling down, depressed, or hopeless: not at all 3. Trouble falling or staying asleep, or sleeping too much: not at all 4. Feeling tired or having little energy: not at all 5. Poor appetite or overeating: not at all 6. Feeling bad about yourself - or that you are a failure or have let yourself or your family down: not at all 7. Trouble concentrating on things, such as reading the newspaper or watching television: not at all 8. Moving or speaking so slowly that other people could have noticed. Or the opposite - being so fidgety or restless that you have been moving around a lot more than usual: not at all 9. Thoughts that you would be better off or of hurting yourself in some way: not at all Total score: 0 Depression Screening Interpretation: Negative Depression Screening Done: Yes 31948 - PHQ-9 Billing: Yes Source: Developed by Drs. Froylan Ghosh, Hoda Redd, Bebeto hC and colleagues, with an educational eduardo from [employer]. Thrive Questionnaire Date Thrive assessed: 11/05/24 I am a: Patient What is your living situation today?: I have a steady place to live Within the past 12 months, did the food you bought not last and you didn't have the money to get more?: Never true Within the past 12 months, did you worry whether your food would run out before you got money to buy more?: Never true Do you have trouble paying for medicines?: No Do you have trouble getting transportation to medical appointments?: No Do you have trouble paying your heating and electricity bill?: No Do you have trouble taking care of your child, family member or friend?: No Do you have trouble with day-to-day activities such as bathing, preparing meals, shopping, managing finances, etc.?: No Are you currently unemployed and looking for a job?: I choose not to answer this question Are you interested in more education?: No Please select the resources that you would like help with: None Currently or been in a relationship where the following occur: No concerns reported THRIVE Score: 0 AUDIT C Alcohol Use Questionnaire (AUDIT-C) 1. How often do you have a drink containing alcohol?: Never 3. How often do you have six or more drinks on one occasion?: Never Total Score: 0 Score Reviewed/Action Taken: Yes LLOYD-7 AMB Questionnaire LLOYD-7 Date LLOYD - 7 assessed: 11/12/24 Feeling nervous, anxious, or on edge: 0 = Not at all Not being able to stop or control worryin = Not at all Worrying too much about different things: 0 = Not at all Trouble relaxin = Not at all Being so restless that it is hard to sit still: 0 = Not at all Becoming easily annoyed or irritable: 0 = Not at all Feeling afraid as if something awful might happen: 0 = Not at all Total LLOYD-7 score (0-4 normal; 5-9 mild; 10-14 moderate; 15-21 severe): 0 Source: Developed by Drs. Froylan Ghosh, Hoda Redd, Bebeto Ch and colleagues, with an educational eduardo from [employer]. Review of Systems Const Denies chills, Denies fatigue, Denies fever(s) and Denies headache(s) ENT Denies dysphagia, Denies dizziness, Denies otalgia, Denies headache(s), Denies neck pain, Denies odynophagia and Denies sore throat Card Denies chest pain, Denies rapid heart rate, Denies palpitations and Denies dyspnea Resp Denies chest congestion, Denies cough, Denies dyspnea and Denies wheezing GI Denies abdominal pain, Denies constipation, Denies dysphagia, Denies heartburn, Denies diarrhea, Denies nausea, Denies odynophagia and Denies vomiting Denies dysuria, Denies nocturia and Denies urinary frequency Musc Denies back pain and Denies neck pain Skin/Breast Denies rash Neuro Denies dizziness and Denies headache(s) Psych Denies anxiety (well-controlled on current Rx) Endo Denies fatigue and Denies palpitations Aller/Immun Denies urticaria (improved), Reports seasonal rhinorrhea and Denies wheezing Physical exam (Primary Care) Vital Signs: Last Vital Signs Temp 97.1 F 11/12/24 13:38 Pulse 52 11/12/24 13:38 BP 128/84 11/12/24 13:38 Pulse Ox 96 11/12/24 13:38 Oxygen Delivery Method Room Air 11/12/24 13:38 BMI result Body Mass Index 32.7 Tobacco/Smoking Status: Tobacco use Status Tobacco use date assessed 11/12/24 11/12/24 13:45 Patient Tobacco Use Status Never used Tobacco 11/12/24 13:39 e-Cigarette/Vaping Use Never Used 11/12/24 13:39 PHQ-9: PHQ-9 Score PHQ-9: Total score 0 11/12/24 13:45 Depression Screening Interpretation: Negative Thrive Assessment: Date of Thrive Assessment Date Thrive assessed 11/05/24 11/12/24 13:39 Currently or been in a relationship where the following occur: No concerns reported Const General: no acute distress and alert HENMT Ears: TM's normal bilaterally and EAC's normal Throat: Yes posterior oropharynx normal and Yes tonsils normal (no TP congestion noted) Neck Neck: Yes supple and No lymphadenopathy Thyroid: Thyroid normal Resp Auscultation: clear to auscultation bilaterally, no crackles, no rales and no wheezes Cardio Rate: regular rate Rhythm: regular rhythm Heart sounds: no murmurs GI Palpation (GI): Soft to palpation and nontender Auscultation: normal bowel sounds General: Yes no CVA tenderness Back/Spine/Pelvis Back: no CVA tenderness Thoracic/Lumbar Spine: No lumbar spinal tenderness Skin Rashes: no rashes Extrem General: Yes no clubbing, cyanosis or edema Results Reviewed Results Reviewed: Laboratory Tests 11/05/24 11/05/24 10:08 10:11 WBC 6.0 Hgb 14.7 Hct 44.8 Plt Count 168 Sodium 140 Potassium 4.4 Creatinine 0.85 Estimated GFR > 60 Fasting Glucose 92 Calcium 9.4 AST 31 ALT 30 Triglycerides 149 Cholesterol 134 LDL Cholesterol, Calc 70 HDL Cholesterol 35 L 25-OH Vitamin D Total 49.7 TSH 5.42 H Free T4 0.83 Ur Specific [employer] 1.015 Urine Protein Negative Urine Glucose (UA) Negative Urine Blood Negative Urine Nitrite Negative Ur Leukocyte Esterase Negative Coding Level of Care Code Est Pt Level 4 (38293) Diagnoses Pure hypercholesterolemia E78.00 Benign essential hypertension I10 Age related osteoporosis, unspecified pathological fracture presence M81.0 Osteoporosis type: age-related Presence of current pathological fracture: unspecified Vitamin D deficiency E55.9 Elevated TSH R79.89 Hives L50.9 Stable central retinal vein occlusion of right eye H34.8112 Renal cyst N28.1 Microscopic hematuria R31.29 Anxiety F41.9 Obesity (BMI 30-39.9) E66.9 Additional Codes PHQ-9 - 96979 - PHQ-9 Billing: Yes ([id number]) Assessment & Plan Assessment & Plan (1) Pure hypercholesterolemia: Code(s): E78.00 - Pure hypercholesterolemia, unspecified Category: Medical Plan: Results of his labs done last week reviewed and discussed with patient Reinforced low cholesterol diet Continue Simvastatin 40 mg QD Will recheck his labs and fasting lipids in 4 months for follow up (2) Benign essential hypertension: Code(s): I10 - Essential (primary) hypertension Category: Medical Plan: Reinforced low sodium diet -?goal is systolic BP of at least 120 to 130 mm or less Continue Metoprolol 25 mg BID (3) Osteoporosis: Code(s): M81.0 - Age-related osteoporosis without current pathological fracture Category: Medical Qualifiers: Osteoporosis type: age-related Presence of current pathological fracture: unspecified Qualified Code(s): M81.0 - Age-related osteoporosis without current pathological fracture Plan: His most recent repeat BMD done on 11/25/2023 revealed (+) 8.7% increase in his BMD in the AP spine; his left femur BMD is mostly unchanged from his previous BMD on 01/03/2021 - will continue to monitor his BMD regularly every 2 to 3 years Follow-up with endocrinology as scheduled (4) Vitamin D deficiency: Code(s): E55.9 - Vitamin D deficiency, unspecified Category: Medical Plan: Continue Vitamin D3 1000 units QD (5) Elevated TSH: Code(s): R79.89 - Other specified abnormal findings of blood chemistry Category: Medical Plan: His serum TSH again remains slightly elevated but his free T4 is normal on his recent labs Patient is currently still clinically euthyroid Will continue to monitor his TFTs closely / regularly (6) Hives: Code(s): L50.9 - Urticaria, unspecified Category: Medical Plan: Resolved lately - patient states that he normally starts getting these around the same time of the year, in the late summer/early fall Continue Cetirizine 10 mg QD PRN and Montelukast 10 mg QD Have advised him again of the option of referring him for allergy testing and immunotherapy for his allergies but patient states that these are now again controlled and he will consider allergy testing if his symptoms get worse (7) Stable central retinal vein occlusion of right eye: Code(s): H34.8112 - Central retinal vein occlusion, right eye, stable Category: Medical Plan: He has mild central retinal vein occlusion in the right eye as well as retinal hemorrhages and mild vessel tortuosity and an epiretinal membrane on exam by retinal specialist back in 2019 - was advised to optimize control of his BP, blood sugar and cholesterol to prevent disease progression Follow-up with retina specialist and Ophthalmology as scheduled for continuing surveillance and management (8) Renal cyst: Code(s): N28.1 - Cyst of kidney, acquired Category: Medical Plan: Repeat renal US done back in 07/2019 showed (+) perirenal cysts bilaterally that are mostly unchanged from previous Renal US done in September 2021 revealed (+) left renal pelviectasis without radha hydronephrosis; benign-appearing bilateral renal and peripelvic renal cysts - NO imaging follow-up is recommended further (9) Microscopic hematuria: Code(s): R31.29 - Other microscopic hematuria Category: Medical Plan: Benign - urology workups have all been negative in the past except for renal cysts Follow up with urology as scheduled (10) Anxiety: Code(s): F41.9 - Anxiety disorder, unspecified Category: Medical Plan: Continue Sertraline 25 mg QD (11) Obesity (BMI 30-39.9): Code(s): E66.9 - Obesity, unspecified Category: Medical Plan: Reinforced diet/exercise as tolerated/ lose weight Plan Follow up in 4 months Orders: Orders Complete Blood Count Auto Diff 4 Months D64.9 - Anemia, unspecified Lipid Panel 4 Months E78.00 - Pure hypercholesterolemia, unspecified Comprehensive [place]. Panel Fast 4 Months E78.00 - Pure hypercholesterolemia, unspecified TSH reflex Free T4 4 Months E78.00 - Pure hypercholesterolemia, unspecified UA CC w/rflx Micro + Cult 4 Months R30.0 - Dysuria Vitamin D 25-OH Total 4 Months E55.9 - Vitamin D deficiency, unspecified
== END 2024-11-12 14:19 | disposition home or self-care (01) ==
LOC: HO.HMCH 13:37
PROVIDERS: PCP Internal Medicine; Visit Provider Internal Medicine
DX: E78.00 Pure hypercholesterolemia, unspecified (principal); H34.8112 Central retinal vein occlusion, right eye, stable; I10 Essential (primary) hypertension; M81.0 Age-related osteoporosis without current pathological fracture; E55.9 Vitamin D deficiency, unspecified; R79.89 Other specified abnormal findings of blood chemistry; L50.9 Urticaria, unspecified; N28.1 Cyst of kidney, acquired; R31.29 Other microscopic hematuria; F41.9 Anxiety disorder, unspecified; E66.9 Obesity, unspecified

== ENCOUNTER → 2024-11-12 13:36 | Outpatient (BNVA) | payer MEDICARE, SELFPAY | PROVIDERS: PCP Internal Medicine; Visit Provider Internal Medicine | DX: E78.00 Pure hypercholesterolemia, unspecified (principal); I10 Essential (primary) hypertension; M81.0 Age-related osteoporosis without current pathological fracture; E55.9 Vitamin D deficiency, unspecified; R79.89 Other specified abnormal findings of blood chemistry; L50.9 Urticaria, unspecified; H34.8112 Central retinal vein occlusion, right eye, stable; N28.1 Cyst of kidney, acquired; R31.29 Other microscopic hematuria; F41.9 Anxiety disorder, unspecified; E66.9 Obesity, unspecified; Z68.32 Body mass index [BMI] 32.0-32.9, adult; Z71.3 Dietary counseling and surveillance | CPT/HCPCS: 96127; 99212 ==

== ENCOUNTER 2025-01-17 12:30 | Outpatient (AMB) | payer MEDICARE, SELFPAY ==
[2025-01-17 13:07] VITALS: BP 130/90; PULSE 62; TEMP 36.3; O2SAT 95; BMI 32.6
--- NOTE | 2025-01-17 13:07 | AM.OFFWIN_ITS ---
Intake Vital Signs 3 01/17/25 13:07 Height 5 ft 11 in Weight 234 lb BMI 32.6 BP 130/90 H Blood Pressure Location Lt brachial Position Sitting Pulse 62 Pulse Source Pulse Oximeter Temp 97.4 F Temp Source Oral Pulse Oximetry (%) 95 Oxygen Delivery Method Room Air Intake Visit Reasons: EP-?shingles Intake Note: pt presents with bumpy, tingly and itchy rash on right antecubital fossa and right shoulder. reports h/o shingles last year Patient Tobacco Use Status: Never used Tobacco Allergies Sulfa (Sulfonamide Antibiotics) (SULFA (SULFONAMIDE ANTIBIOTICS)) Allergy (Intermediate, Verified 01/17/25 13:12) HIVES Silk tape Allergy (Intermediate, Uncoded 11/12/24 13:50) rash Do you need a note to return to daycare/school/sports/work: No HPI HPI Comments 2 History of Present Illness0 Details 74 y/o Male patient who presents to the walk in clinic with c/o Rash ?Shingles on right Arm and right shoulder that started yesterday. Reports that rash is burning and tingly, filled with clear fluid. H/o Shingle rash in the past and it looked and felt similar to this time. Pt had Chicken Pox has a child and unvaccinated for Shingle vaccine. [facility] Medical History (Updated 01/17/25 @ 14:01 by Pat Dela Cruz NP) Rash and nonspecific skin eruption Obesity (BMI 30-39.9) Microscopic hematuria Renal cyst Stable central retinal vein occlusion of right eye Osteoporosis Vitamin D deficiency Benign essential hypertension Pure hypercholesterolemia Surgical History (Updated 11/12/24 @ 14:53 by Mike Powell MD) History of hip surgery History of colonoscopy History of inguinal hernia repair Family History Father Medical history unknown Mother Hypertension Sister No problems noted. Social History Housing: House Alcohol intake: never Patient Tobacco Use Status: Never used Tobacco e-Cigarette/Vaping Use: Never Used Second Hand Smoke Exposure: No service: No Current occupational status: retired Cognitive needs: No Hearing needs: No Vision needs: Yes Physical Exam Vital Signs: Last Vital Signs Temp 97.4 F 01/17/25 13:07 Pulse 62 07/28/25 13:07 BP 130/90 H 01/17/25 13:07 Pulse Ox 95 01/17/25 13:07 Oxygen Delivery Method Room Air 01/17/25 13:07 BMI result Body Mass Index 32.6 Const General: no acute distress Nutritional Appearance: overweight Orientation/consciousness: patient oriented x3 Skin Full body images: 2 1. A group of erythematous vesicular rash filled with clear fluid. 2. A group of erythematous vesicular rash filled with clear fluid. Neuro General: patient oriented x3, gait normal and moves all extremities Psych Speech and movement: Normal speech and movement present Assessment & Plan Assessment & Plan (1) Rash and nonspecific skin eruption: Code(s): R21 - Rash and other nonspecific skin eruption Plan: DDx's: Eczema vs Dermatitis vs Shingles Ordered Valtrex for 7 days. Medications: New 2 valacyclovir (Valtrex) 1,000 mg PO BID 14 tabs 0RF 7 days R21 - Rash and other nonspecific skin eruption Coding Level of Care Code Est Pt Level 4 (69599) Diagnoses Rash and nonspecific skin eruption R21 Time Spent (min) 20
== END 2025-01-17 14:17 | disposition home or self-care (01) ==
PROVIDERS: PCP Internal Medicine; Visit Provider Nurse Practitioner Family
DX: R21 Rash and other nonspecific skin eruption (principal)

== ENCOUNTER → 2025-01-17 12:30 | Outpatient (BNVA) | payer MEDICARE, SELFPAY | PROVIDERS: PCP Internal Medicine; Visit Provider Nurse Practitioner Family | DX: R21 Rash and other nonspecific skin eruption (principal) | CPT/HCPCS: 99212 ==

== ENCOUNTER 2025-03-09 10:24 | Outpatient (REF) | payer MEDICARE, SELFPAY ==
[2025-03-09 10:39] LABS: MANUAL DIFF FLAG NO
[2025-03-09 11:07] LABS: Hematocrit 44.5 % (42.0-52.0); Hemoglobin 14.8 g/dl (14.0-18.0); Imm Gran Abs Auto 0.02 X10*3/uL (0.00-0.03); Imm Gran Pct Auto 0.3 % (0.0-0.4); Lymphocytes Absolute Auto 1.8 X10*3/uL (1.2-4.9); Mean Corpuscular HGB Conc 33.3 g/dl (31.0-36.0); Mean Corpuscular Hemoglobin 28.1 pg (27.0-33.0); Mean Corpuscular Volume 84.4 fL (80.0-98.0); NRBC Abs Auto 0.000 X10*3/uL (0.0-0.012); NRBC Pct Auto 0.0 /100WBC (0.0-0.2); Platelet Count 166 X10*3/uL (160-400); Red Blood Count 5.27 X10*6/uL (4.60-5.80); White Blood Count 6.3 X10*3/uL (4.8-10.8)
[2025-03-09 11:24] LABS: Appearance Urine Clear; Glucose Urine UA Negative (Negative); PH 6.5 (5.0-9.0); Specific Gravity - Urine 1.015 (1.005-1.025)
[2025-03-09 11:44] LABS: Alanine Aminotransferase 28 U/L (0-40); Albumin Level 4.4 g/dL (3.5-5.0); Alkaline Phosphatase 49 U/L (39-117); Anion Gap 9 (12-20); Aspartate Amino Transferase 33 U/L (5-37); Blood Urea Nitrogen 17 mg/dL (9-16); Calcium 9.3 mg/dL (8.4-10.2); Carbon Dioxide 29 mmol/L (22-29); Chloride 107 mmol/L (96-108); Cholesterol 131 mg/dL (<200); Estimated Glomerular Filt Rate > 60; HDL Cholesterol 35 mg/dL (>40); Potassium 4.2 mmol/L (3.3-5.1); Sodium 141 mmol/L (135-145); Total Protein 7.3 g/dL (6.5-8.0); Triglycerides 165 mg/dL (<150)
[2025-03-09 13:23] LABS: Free T4 (Free Thyroxine) 0.84 ng/dL (0.71-1.85)
== END 2025-03-09 10:25 | disposition home or self-care (01) ==
LOC: HO.LAB 10:24
PROVIDERS: PCP Internal Medicine; Visit Provider Internal Medicine
DX: D64.9 Anemia, unspecified (principal); E78.00 Pure hypercholesterolemia, unspecified; E55.9 Vitamin D deficiency, unspecified; R30.0 Dysuria
CPT/HCPCS: 36415; 80053; 80061; 81003; 82306; 84439; 84443; 85025

== ENCOUNTER 2025-03-15 12:51 | Outpatient (AMB) | payer MEDICARE, SELFPAY ==
[2025-03-15 13:03] VITALS: BP 130/90; PULSE 58; O2SAT 95; BMI 32.6
--- NOTE | 2025-03-15 13:03 | A.OFFPC_ITS ---
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 Accompanied by: Self / Same As Patient Allergies Sulfa (Sulfonamide Antibiotics) (SULFA (SULFONAMIDE ANTIBIOTICS)) Allergy (Intermediate, Verified 03/15/25 13:42) HIVES Silk tape Allergy (Intermediate, Uncoded 03/15/25 13:42) rash Medication List - Last Reconciled 03/15/25 by Mike Powell MD albuterol sulfate 90 mcg/actuation (Ventolin HFA) 2 puffs inhalation Q6H PRN 30 days cetirizine 10 mg PO DAILY 90 days cholecalciferol (vitamin D3) 25 mcg PO DAILY diphenhydramine HCl (Benadryl) 25 mg PO TID PRN metoprolol tartrate 25 mg PO BID 90 days montelukast 10 mg PO BEDTIME 90 days multivitamin 1 tab PO DAILY sertraline 25 mg PO DAILY 90 days simvastatin 40 mg PO BEDTIME 90 days valacyclovir (Valtrex) 1,000 mg PO BID 7 days Tobacco use date assessed: 03/15/25 Fall risk assessment: No Falls in past year Last assessed Fall Risk: 03/15/25 Dental Screening Dental Screen Date: 03/15/25 Did you have a dental visit in the last 12 months?: Yes Did you have a dental problem in the last 6 months where you did not have access to dental care?: No Was dental information given to patient?: Patient has dentist HPI 4mt f/u HPI Details Patient comes in today for his follow up visit States that he feels okay He denies any headaches or dizziness Denies any chest pain but states that he has been experiencing recurrent chest congestion and on and off chest tightness for over a week now States that he has been using his rescue inhalers more often than usual lately as he does feel SOB at times He denies any fever or sore throat Notes (+) occasional cough, which is mostly non-productive No nausea/vomiting, no abdominal pain No change in bowel habits noted Adds that he had a flare up / bout of shingles a couple of weeks ago and was prescribed Valtrex at the walk-in clinic States that he still has some residual lesions on his right arm but most of them have all cleared up since Needs his Sertraline Rx refilled He had his follow up labs done last week - to discuss his results [facility] Medical History Rash and nonspecific skin eruption Obesity (BMI 30-39.9) Microscopic hematuria Renal cyst Stable central retinal vein occlusion of right eye Osteoporosis Vitamin D deficiency Benign essential hypertension Pure hypercholesterolemia Surgical History History of hip surgery History of colonoscopy History of inguinal hernia repair Family History Father Medical history unknown Mother Hypertension Sister No problems noted. Social History Housing: House Alcohol intake: never Patient Tobacco Use Status: Never used Tobacco e-Cigarette/Vaping Use: Never Used Second Hand Smoke Exposure: No service: No Current occupational status: retired Cognitive needs: No Hearing needs: No Vision needs: Yes Questionnaire PHQ-9 Over the last 2 weeks, how often have you been bothered by any of the following problems? Depression Screening Interpretation: Negative Depression Screening Done: Yes Source: Developed by Drs. Froylan Ghosh, Hoda Redd, Bebeto Ch and colleagues, with an educational eduardo from [employer]. Thrive Questionnaire Date Thrive assessed: 11/05/24 I am a: Patient What is your living situation today?: I have a steady place to live Within the past 12 months, did the food you bought not last and you didn't have the money to get more?: Never true Within the past 12 months, did you worry whether your food would run out before you got money to buy more?: Never true Do you have trouble paying for medicines?: No Do you have trouble getting transportation to medical appointments?: No Do you have trouble paying your heating and electricity bill?: No Do you have trouble taking care of your child, family member or friend?: No Do you have trouble with day-to-day activities such as bathing, preparing meals, shopping, managing finances, etc.?: No Are you currently unemployed and looking for a job?: I choose not to answer this question Are you interested in more education?: No Please select the resources that you would like help with: None Currently or been in a relationship where the following occur: No concerns reported THRIVE Score: 0 AUDIT C Alcohol Use Questionnaire (AUDIT-C) 1. How often do you have a drink containing alcohol?: Never 3. How often do you have six or more drinks on one occasion?: Never Total Score: 0 Score Reviewed/Action Taken: Yes LLOYD-7 AMB Questionnaire LLOYD-7 Date LLOYD - 7 assessed: 11/12/24 Source: Developed by Drs. Froylan Ghosh, Hoda Redd, Bebeto Ch and colleagues, with an educational eduardo from [employer]. Review of Systems Const Denies chills, Reports fatigue, Denies fever(s) and Denies headache(s) ENT Denies dysphagia, Denies dizziness, Denies otalgia, Denies headache(s), Denies neck pain, Denies odynophagia and Denies sore throat Card Denies chest pain, Denies rapid heart rate, Denies palpitations and Reports dyspnea on exertion Resp Reports chest congestion (chest feels tight at times), Reports cough (on and off - non-productive), Reports dyspnea on exertion and Denies wheezing GI Denies abdominal pain, Denies constipation, Denies dysphagia, Denies heartburn, Denies diarrhea, Denies nausea, Denies odynophagia and Denies vomiting Denies dysuria, Denies nocturia and Denies urinary frequency Musc Denies back pain and Denies neck pain Skin/Breast Details: (+) few scattered residual papular lesions on the right arm (shingles) Denies rash Neuro Denies dizziness and Denies headache(s) Psych Denies anxiety (well-controlled on current Rx) Endo Reports fatigue and Denies palpitations Aller/Immun Denies urticaria (improved) and Denies wheezing Physical exam (Primary Care) Vital Signs: Last Vital Signs Pulse 58 03/15/25 13:03 BP 130/90 H 03/15/25 13:03 Pulse Ox 95 03/15/25 13:03 Oxygen Delivery Method Room Air 03/15/25 13:03 BMI result Body Mass Index 32.6 Tobacco/Smoking Status: Tobacco use Status Tobacco use date assessed 03/15/25 03/15/25 13:05 Patient Tobacco Use Status Never used Tobacco 03/15/25 13:05 e-Cigarette/Vaping Use Never Used 03/15/25 13:05 Depression Screening Interpretation: Negative Thrive Assessment: Date of Thrive Assessment Date Thrive assessed 11/05/24 03/15/25 13:05 Currently or been in a relationship where the following occur: No concerns reported Const General: no acute distress and alert HENMT Ears: TM's normal bilaterally and EAC's normal Throat: Yes posterior oropharynx normal and Yes tonsils normal (no TP congestion noted) Neck Neck: Yes supple and No lymphadenopathy Thyroid: Thyroid normal Resp Auscultation: no crackles, no rales, rhonchi throughout (scattered), wheezes expiratory wheezes (occasionally) and diminished lung sounds bilateral Cardio Rate: regular rate Rhythm: regular rhythm Heart sounds: no murmurs GI Palpation (GI): Soft to palpation and nontender Auscultation: normal bowel sounds General: Yes no CVA tenderness Back/Spine/Pelvis Back: no CVA tenderness Thoracic/Lumbar Spine: No lumbar spinal tenderness Skin Other: (+) few scattered erythematous papular lesions on the right arm Rashes: no rashes Extrem General: Yes no clubbing, cyanosis or edema Results Reviewed Results Reviewed: Laboratory Tests 03/09/25 03/09/25 10:34 10:38 WBC 6.3 Hgb 14.8 Hct 44.5 Plt Count 166 Sodium 141 Potassium 4.2 Creatinine 0.96 Estimated GFR > 60 Fasting Glucose 94 Calcium 9.3 AST 33 ALT 28 Triglycerides 165 H Cholesterol 131 LDL Cholesterol, Calc 63 HDL Cholesterol 35 L 25-OH Vitamin D Total 44.2 TSH 5.73 H Free T4 0.84 Ur Specific [place] 1.015 Urine Protein Negative Urine Glucose (UA) Negative Urine Nitrite Negative Ur Leukocyte Esterase Negative Coding Level of Care Code Est Pt Level 4 (23758) Diagnoses Pure hypercholesterolemia E78.00 Benign essential hypertension I10 Age related osteoporosis, unspecified pathological fracture presence M81.0 Osteoporosis type: age-related Presence of current pathological fracture: unspecified COPD exacerbation J44.1 Vitamin D deficiency E55.9 Elevated TSH R79.89 Herpes zoster without complication B02.9 Herpes zoster complications: without complications Hives L50.9 Stable central retinal vein occlusion of right eye H34.8112 Renal cyst N28.1 Microscopic hematuria R31.29 Anxiety F41.9 Obesity (BMI 30-39.9) E66.9 Assessment & Plan Assessment & Plan (1) Pure hypercholesterolemia: Code(s): E78.00 - Pure hypercholesterolemia, unspecified Category: Medical Plan: Results of his labs done last week reviewed and discussed with patient Reinforced low cholesterol diet Continue Simvastatin 40 mg QD Will recheck his labs and fasting lipids in 4 months for follow up (2) Benign essential hypertension: Code(s): I10 - Essential (primary) hypertension Category: Medical Plan: Reinforced low sodium diet -?goal is systolic BP of at least 120 to 130 mm or less Continue Metoprolol 25 mg BID (3) Osteoporosis: Code(s): M81.0 - Age-related osteoporosis without current pathological fracture Category: Medical Qualifiers: Osteoporosis type: age-related Presence of current pathological fracture: unspecified Qualified Code(s): M81.0 - Age-related osteoporosis without current pathological fracture Plan: His most recent repeat BMD done on 11/25/2023 revealed (+) 8.7% increase in his BMD in the AP spine; his left femur BMD is mostly unchanged from his previous BMD on 01/03/2021 - will continue to monitor his BMD regularly every 2 to 3 years Follow-up with endocrinology as scheduled (4) COPD exacerbation: Code(s): J44.1 - Chronic obstructive pulmonary disease with (acute) exacerbation Category: Medical Plan: Will start patient empirically on doxycycline 100 mg BID x 7 days Continue Albuterol HFA 2 inhalations Q 6 hours PRN (5) Vitamin D deficiency: Code(s): E55.9 - Vitamin D deficiency, unspecified Category: Medical Plan: Continue Vitamin D3 1000 units QD (6) Elevated TSH: Code(s): R79.89 - Other specified abnormal findings of blood chemistry Category: Medical Plan: His serum TSH again remains slightly elevated but his free T4 is normal on his recent labs Patient is currently still clinically euthyroid Will continue to monitor his TFTs closely / regularly (7) Shingles rash: Code(s): B02.9 - Zoster without complications Category: Medical Qualifiers: Herpes zoster complications: without complications Qualified Code(s): B02.9 - Zoster without complications Plan: Resolving again Patient is advised that he needs to go and get his shingles vaccine sometime in the next couple of months (8) Hives: Code(s): L50.9 - Urticaria, unspecified Category: Medical Plan: Resolved lately - patient states that he normally starts getting these around the same time of the year, in the late summer/early fall Continue Cetirizine 10 mg QD PRN and Montelukast 10 mg QD Have advised him again of the option of referring him for allergy testing and immunotherapy for his allergies but patient states that these are now again controlled and he will consider allergy testing if his symptoms get worse (9) Stable central retinal vein occlusion of right eye: Code(s): H34.8112 - Central retinal vein occlusion, right eye, stable Category: Medical Plan: He has mild central retinal vein occlusion in the right eye as well as retinal hemorrhages and mild vessel tortuosity and an epiretinal membrane on exam by retinal specialist back in 2019 - was advised to optimize control of his BP, bl ood sugar and cholesterol to prevent disease progression Follow-up with retina specialist and Ophthalmology as scheduled for continuing surveillance and management (10) Renal cyst: Code(s): N28.1 - Cyst of kidney, acquired Category: Medical Plan: Repeat renal US done back in 07/2019 showed (+) perirenal cysts bilaterally that are mostly unchanged from previous Renal US done in September 2021 revealed (+) left renal pelviectasis without radha hydronephrosis; benign-appearing bilateral renal and peripelvic renal cysts - NO imaging follow-up is recommended further (11) Microscopic hematuria: Code(s): R31.29 - Other microscopic hematuria Category: Medical Plan: Benign - urology workups have all been negative in the past except for renal cysts Follow up with urology as scheduled (12) Anxiety: Code(s): F41.9 - Anxiety disorder, unspecified Category: Medical Plan: Continue Sertraline 25 mg QD (13) Obesity (BMI 30-39.9): Code(s): E66.9 - Obesity, unspecified Category: Medical Plan: Reinforced diet/exercise as tolerated/ lose weight Plan Follow up in 4 months Orders: Orders Lipid Panel 4 Months E78.00 - Pure hypercholesterolemia, unspecified UA CC w/rflx Micro + Cult 4 Months R30.0 - Dysuria Vitamin D 25-OH Total 4 Months E55.9 - Vitamin D deficiency, unspecified Complete Blood Count Auto Diff 4 Months D64.9 - Anemia, unspecified Comprehensive [place]. Panel Fast 4 Months E78.00 - Pure hypercholesterolemia, unspecified TSH reflex Free T4 4 Months E78.00 - Pure hypercholesterolemia, unspecified Medications: New doxycycline hyclate 100 mg PO BID 14 caps 0RF 7 days Refilled sertraline 25 mg PO DAILY 90 tabs 1RF 90 days F41.9 - Anxiety disorder, unspecified
== END 2025-03-15 14:23 | disposition home or self-care (01) ==
LOC: HO.HMCH 12:52
PROVIDERS: PCP Internal Medicine; Visit Provider Internal Medicine
DX: E78.00 Pure hypercholesterolemia, unspecified (principal); J44.1 Chronic obstructive pulmonary disease with (acute) exacerbation; H34.8112 Central retinal vein occlusion, right eye, stable; I10 Essential (primary) hypertension; M81.0 Age-related osteoporosis without current pathological fracture; E55.9 Vitamin D deficiency, unspecified; R79.89 Other specified abnormal findings of blood chemistry; B02.9 Zoster without complications; L50.9 Urticaria, unspecified; N28.1 Cyst of kidney, acquired; R31.29 Other microscopic hematuria; F41.9 Anxiety disorder, unspecified

== ENCOUNTER → 2025-03-15 12:51 | Outpatient (BNVA) | payer MEDICARE, SELFPAY | PROVIDERS: PCP Internal Medicine; Visit Provider Internal Medicine | DX: E78.00 Pure hypercholesterolemia, unspecified (principal); I10 Essential (primary) hypertension; M81.0 Age-related osteoporosis without current pathological fracture; J44.1 Chronic obstructive pulmonary disease with (acute) exacerbation; E55.9 Vitamin D deficiency, unspecified; R79.89 Other specified abnormal findings of blood chemistry; B02.9 Zoster without complications; L50.9 Urticaria, unspecified; H34.8112 Central retinal vein occlusion, right eye, stable; N28.1 Cyst of kidney, acquired; R31.29 Other microscopic hematuria; F41.9 Anxiety disorder, unspecified; E66.9 Obesity, unspecified; Z68.32 Body mass index [BMI] 32.0-32.9, adult; Z71.3 Dietary counseling and surveillance | CPT/HCPCS: 99212 ==